=== PATIENT | female | born 1960 | race Caucasian/White ===

== ENCOUNTER → 2016-10-20 | Outpatient (CLI) | payer OTHER ==
--- NOTE | 2016-10-24 13:47 | MAM ---
EXAM DESCRIPTION: Screening Mammogram,Bilateral CLINICAL HISTORY: 56 years, Female, Screening mammogram COMPARISON: August 18, 2015 TECHNIQUE: CC and MLO digital mammograms with computer aided detection. FINDINGS: There are scattered fibroglandular densities. There is no dominant mass nor any suspicious microcalcifications. Benign microcalcifications are present. IMPRESSION: BI-RADS 2: BENIGN FOLLOW-UP: Routine mammography screening. Electronically signed by: Lamont Sykes MD 10/24/2016 1:45 PM CDT
== END ==
LOC: MAMMO 09:00
PROVIDERS: ATTEND Emergency Medicine
DX: Z12.31 Encounter for screening mammogram for malignant neoplasm of breast (principal)

== ENCOUNTER 2017-12-06 14:33 | Emergency (ER) | payer OTHER ==
[2017-12-06 14:59] VITALS: TEMP 98.1
[2017-12-06] MEDS ORDERED: MORPHINE SULFATE INJ 10 MG/ML VIAL IV ONE ×2 (15:12→17:09)
--- NOTE | 2017-12-06 15:13 | ED.PDOC ---
History of Present Illness - General Chief Complaint: Respiratory Problem Stated Complaint: right sided chest discomfort Time Seen by Provider: 12/06/17 14:57 Source: patient, family, other - URGENT CARE RECORDS REVIEWED. Exam Limitations: no limitations - History of Present Illness Initial Comments: RT-SIDED CP, SOB. ACUTE ONSET LAST NIGHT, STILL PERSISTING TODAY THUS PT WENT TO ER. THEY DID CXR, EKG, CBC, CMP, D-DIMER AND GAVE TORADOL SHOT. PT IS ON CHRONIC ESTRADIOL HRT AND D-DIMER SLIGHTLY ELEVATED TODAY SO THEY SENT HER TO ER FOR FURTHER EVALUATION. PT AND REQUEST THAT WE OBTAIN A COPY CXR AND EKG OBTAINED AT [facility]RGENT [facility]ARE [facility] AND THEY REQUESTED THAT WE NOT REPEAT THESE, HENCE I DID NOT ORDER. WE ARE ATTEMPTING TO CONTACT URGENT CARE AND OBTAIN EXPEDITIOUSLY FOR MY REVIEW. PT ALLERGIC TO PO CODEINE. SHE REASSURES ME SHE IS NOT ALLERGIC TO IV MORPHINE. Timing/Duration: constant Severity: severe Improving Factors: nothing Worsening Factors: nothing Associated Symptoms: chest pain, shortness of breath Allergies/Adverse Reactions: Allergies Codeine Allergy (Unknown, Verified 05/27/14 12:57) Home Medications: Ambulatory Orders Carbamazepine [Tegretol-Xr] 200 mg PO DAILY@0700 05/27/14 Carbamazepine [Tegretol-Xr] 400 mg PO BEDTIME 05/27/14 Diltiazem HCl 60 mg PO TID 05/27/14 Escitalopram Oxalate [Lexapro] 20 mg PO BEDTIME 05/27/14 Estradiol 2 mg PO DAILY 05/27/14 Levothyroxine Sodium 25 mcg PO DAILY@0700 05/27/14 Meloxicam [Mobic] 7.5 mg PO BID 05/27/14 Promethazine Tab [Phenergan Tablet] 25 mg PO Q6HRS PRN 05/27/14 Tramadol HCl 50 mg PO Q6HRS PRN 05/27/14 Calcium Carbonate-Cholecalcife [Calcium + D] 1 tab PO DAILY 05/30/14 Cyanocobalamin [Vitamin B-12] 2,500 mcg SL BID 05/30/14 Estradiol 2 mg PO BID 05/30/14 Famotidine [Pepcid AC] 10 mg PO DAILY 05/30/14 Multiple Vitamin [Multi Vitamin Daily] 1 tab PO DAILY 05/30/14 Sulfamethoxazole-Trimethoprim [Bactrim Ds 800-160 mg] 1 tab PO BID 05/30/14 Review of Systems - Review of Systems Constitutional: Denies: chills, diaphoresis, fever EENTM: Denies: blurred vision, ear pain Respiratory: States: short of breath. Denies: cough, wheezing Cardiology: States: chest pain - R-SIDED. Denies: palpitations Gastrointestinal/Abdominal: Denies: abdominal pain, nausea, vomiting Genitourinary: Denies: dysuria, frequency Musculoskeletal: States: other - CHRONIC RLE SCIATICA. Denies: back pain, muscle pain Skin: States: no symptoms reported Neurological: States: pre-existing deficit. Denies: headache, numbness, weakness Endocrine: States: no symptoms reported Hematologic/Lymphatic: States: no symptoms reported All other Systems: Reviewed and Negative Past Medical History (General) - Patient Medical History Hx Seizures: No Hx Stroke: No Hx Dementia: No Hx Asthma: No Hx of COPD: No Hx Cardiac Disorders: No Hx Congestive Heart Failure: No Hx Pacemaker: No Hx Hypertension: No Hx Thyroid Disease: No Hx Diabetes: No Hx Gastroesophageal Reflux: No Hx Renal Disease: No Hx Cancer: Yes - breast, skin Hx of HIV: No Hx Hepatitis C: No Hx MRSA: No - Vaccination History Hx Tetanus, Diphtheria Vaccination: No Hx Influenza Vaccination: No Hx Pneumococcal Vaccination: Yes - Social History Hx Tobacco Use: No Hx Chewing Tobacco Use: No Hx Alcohol Use: No Hx Substance Use: No Hx Substance Use Treatment: No Hx Depression: No Hx Physical Abuse: No Hx Emotional Abuse: No Hx Suspected Abuse: No - Female History Patient : No Family Medical History - Family History Maternal Family History: Unknown Living Status: Unknown Physical Exam - Physical Exam General Appearance: Alert, Obvious distress Eye Exam: bilateral normal Ears, Nose, Throat: hearing grossly normal, normal ENT inspection Neck: non-tender, full range of motion, supple, normal inspection - NO BRUIT. NO JVD. Respiratory: chest non-tender, lungs clear, normal breath sounds, no respiratory distress, no accessory muscle use Cardiovascular/Chest: normal peripheral pulses, regular rate, rhythm, no JVD, no murmur Peripheral Pulses: radial,right: 2+, radial,left: 2+ Gastrointestinal/Abdominal: normal bowel sounds, non tender, soft Back Exam: normal inspection, no CVA tenderness Extremity: normal range of motion, non-tender, normal inspection, no pedal edema , no calf tenderness, other - NEG MICHAEL'S. Neurologic: no motor/sensory deficits, alert, normal mood/affect Skin Exam: normal color, warm/dry Lymphatic: no adenopathy Progress - Progress Progress: 12/06/17 16:50 CP W/U NEG. 1 1/2 D CP AND SOB THUS 1 SET OF CARDIAC ENZ (WNL) ARE SUFFICIENT TO R/O AK. PT HAS MILDLY ELEVATED D-DIMER BUT CTA NEG FOR P.E. LEGS NTTP AND CLINICALLY PT DOES NOT HAVE ANY DVT S/SX. I REVIEWED THE URGENT CARE'S RECORDS: CBC, CMP UNREMARKABLE. CXR NEG. EKG NSR. NO INFECTIOUS URI SX TO WARRANT ABX. PER FAMILY, PT HAS BEEN USING BAND SAW W/O MASK AND EXERTING PHYSICALLY MORE THAN SHE IS USED TO LATELY; AND HER SX ARE WORSE WITH DEEP BREATH, THUS CLINICALLY C/W PLEURISY. PT DECLINES STEROIDS AND HAS ULTRAM AT HOME. NSAIDS, EXPECTANT MGMT. SAFE FOR DC TO HOME WITH FAMILY. Departure - Departure Clinical Impression: Atypical chest pain Dyspnea Qualifiers: Dyspnea type: shortness of breath Qualified Code(s): R06.02 - Shortness of breath; R06.00 - Dyspnea, unspecified; R06.01 - Orthopnea Disposition: Discharge to Home or Self Care Condition: Good Departure Forms: ED Discharge - Pt. Copy, Patient Portal Self Enrollment Instructions: Pleuritic Chest Pain (DC) Diet: resume usual diet Home Medications: Ambulatory Orders Carbamazepine [Tegretol-Xr] 200 mg PO DAILY@0700 05/27/14 Carbamazepine [Tegretol-Xr] 400 mg PO BEDTIME 05/27/14 Diltiazem HCl 60 mg PO TID 05/27/14 Escitalopram Oxalate [Lexapro] 20 mg PO BEDTIME 05/27/14 Estradiol 2 mg PO DAILY 05/27/14 Levothyroxine Sodium 25 mcg PO DAILY@0700 05/27/14 Meloxicam [Mobic] 7.5 mg PO BID 05/27/14 Promethazine Tab [Phenergan Tablet] 25 mg PO Q6HRS PRN 05/27/14 Tramadol HCl 50 mg PO Q6HRS PRN 05/27/14 Calcium Carbonate-Cholecalcife [Calcium + D] 1 tab PO DAILY 05/30/14 Cyanocobalamin [Vitamin B-12] 2,500 mcg SL BID 05/30/14 Estradiol 2 mg PO BID 05/30/14 Famotidine [Pepcid AC] 10 mg PO DAILY 05/30/14 Multiple Vitamin [Multi Vitamin Daily] 1 tab PO DAILY 05/30/14 Sulfamethoxazole-Trimethoprim [Bactrim Ds 800-160 mg] 1 tab PO BID 05/30/14 Additional Instructions: Please follow-up with your regular doctor in 1 week to ensure you are improving. Please get plenty of rest and don't over-exert yourself until the symptoms resolve.
--- NOTE | 2017-12-06 16:37 | CT ---
EXAM DESCRIPTION: CTA Chest CLINICAL HISTORY: 57 years Female, CP, SOB, ELEVATED D-DIMER, EVAL FOR P.E. COMPARISON: None. TECHNIQUE: Transaxial images were obtained with intravenous contrast media. Multiplanar reconstruction was performed. No 3-D reconstruction was performed. This exam was performed according to our departmental dose-optimization program, which includes automated exposure control, adjustment of the mA and/or kV according to patient size and/or use of iterative reconstruction technique. FINDINGS: The thyroid is normal in appearance. No pathologic axillary adenopathy is seen. The thoracic aorta is normal in appearance. A hiatus hernia is observed. There is evidence of surgery at the level of the gastroesophageal junction. No evidence of a pulmonary embolus is seen. No hilar or mediastinal adenopathy is detected. No focal infiltrate is seen. No pulmonary mass or nodule is observed. Mild degenerative changes are seen in the thoracic spine. IMPRESSION: No evidence of pulmonary embolus is seen. Electronically signed by: Sawyer Norris MD 12/06/2017 4:35 PM CDT
[2017-12-06 17:25] VITALS: BP 159/76; O2SAT 99
== END 2017-12-06 17:25 | disposition home or self-care (01) ==
LOC: ER 14:33
DX: R07.89 Other chest pain (principal); R06.02 Shortness of breath; Z79.899 Other long term (current) drug therapy; Z88.5 Allergy status to narcotic agent; Z85.3 Personal history of malignant neoplasm of breast; Z85.828 Personal history of other malignant neoplasm of skin
CPT/HCPCS: 36415; 71275; 82550; 82553; 84484; J2270

== ENCOUNTER → 2017-12-06 | Outpatient (CLI) | payer OTHER | LOC: LAB.O 13:54 | PROVIDERS: ATTEND Nurse Practitioner Family | DX: R06.00 Dyspnea, unspecified (principal) ==

== ENCOUNTER → 2017-12-15 | Outpatient (CLI) | payer OTHER ==
[~2017-12-15] MED LIST: IPRATROPIUM/ALBUTEROL 3 ML VIAL NEB ONE
--- NOTE | 2017-12-15 12:09 | US ---
EXAM DESCRIPTION: Right upper quadrant abdominal sonogram CLINICAL HISTORY: ABD PN COMPARISON: None Available. TECHNIQUE: Right upper quadrant ultrasound FINDINGS: Pancreas: Visualized portions of the pancreas are unremarkable. Bowel gas obscures some areas. Aorta/inferior vena cava: No aortic aneurysm. Normal inferior vena cava. Liver: The liver is homogeneous in texture with normal echogenicity of the hepatic parenchyma. No focal liver lesion or intrahepatic bile duct dilatation. No liver surface irregularity. Normal appearance of the portal vein and hepatic veins. Gallbladder: Dense shadowing is seen consistent with numerous small calculi within the gallbladder. No gallbladder wall thickening or surrounding fluid to suggest acute cholecystitis. Sonographic Rodney sign was recorded as negative. Polyp in the anterior gallbladder wall measures 4 mm. Gallbladder wall thickness is 2.6 mm. Common bile duct: Normal caliber measuring 6.0 mm. Right kidney: Renal length is 10.0 cm. Normal cortical echogenicity. Cortical thickness is normal. No hydronephrosis is seen. No renal mass or shadowing calculus. IMPRESSION: Gallstones without other changes to suggest acute cholecystitis. Electronically signed by: Leo Joel MD 12/15/2017 12:08 PM CDT
== END ==
LOC: US 12:08
PROVIDERS: ATTEND Emergency Medicine
DX: R09.1 Pleurisy (principal); K80.20 Calculus of gallbladder without cholecystitis without obstruction
CPT/HCPCS: 76705; 94060; J7620

== ENCOUNTER 2018-09-19 14:20 | Inpatient (IN) | payer OTHER ==
--- NOTE | 2018-09-19 14:30 | HP ---
SUPERVISING PHYSICIAN: Fidel Yip M.D. CHIEF COMPLAINT: General malaise, cough, fever. HISTORY OF PRESENT ILLNESS: Ms. Connolly is a 58 year-old female patient that presented to the [facility] today after she started having symptoms that included a cough that had been over the last 2 weeks, and she became much more achy with general malaise. She does have a significant history of recently having extensive surgery starting last December on her left Achilles with 4 surgeries, reconstructions and having been on antibiotics for well over 7 weeks, and then requiring multiple surgeries after initial therapy. She was started back on antibiotic therapy with vancomycin and Cefepime under the care of Dr. Zhang with the intention of 3 weeks of total treatment. She started treatment with antibiotics on the . Today in the clinic she was seen by Zenaida Fregoso, nurse practitioner. Vital signs in the clinic showed she was afebrile with unremarkable vital signs, satting 97% on room air. Laboratories were then completed and showed she had a mild leukocytosis with a left shift. Chemistries were fairly unremarkable with a BUN of 20, otherwise creatinine was normal, electrolytes. Liver functions were all within normal limits. Chest x- ray was obtained and per radiology interpretation there was note of right perihilar and right upper lobe infiltrates consistent with pneumonia. She had an Influenza by PCR completed that was reportedly negative. The case was discussed with Dr. Zhang who requested the patient to be admitted to the Medical/Surgical floor at [facility] for initiation of treatment of underlying right sided pneumonia with concerns for hospital acquired pneumonia with the patient being on multiple antibiotics within the last 6 months. The patient is going to be now admitted for initiation of antibiotics for treatment of the underlying right sided pneumonia. She was admitted in stable condition. PAST MEDICAL HISTORY: 1. Hypertension. 2. Diabetes mellitus both diet controlled. 3. Esophageal spasms on verapamil. 4. Depression. 5. Gastroesophageal reflux disease. 6. Hypothyroidism. PAST SURGICAL HISTORY: 1. Gastric sleeve. 2. Partial hysterectomy. 3. Right hip replacement. 4. Partial cholecystectomy due to complications from diverticulitis. 5. Bilateral lumpectomies. 6. Carpal tunnel syndrome, bilateral. 7. Hernia repair. HOME MEDICATIONS: 1. Verapamil 120 mg daily. 2. Tramadol 50 mg every 6 hours as needed for pain. 3. Paroxetine 25 mg b.i.d. 4. Multiple vitamins 1 tablet daily. 5. Levothyroxine 25 mcg daily. 6. Johnson 5s every 6 hours as needed for pain. 7. Pepcid AC 10 mg daily. 8. Estradiol 1 mg b.i.d. 9. Esomeprazole. 10. Magnesium 40 mg daily. 11. Lexapro 20 mg at bedtime. 12. Align. 13. Antibiotics for underlying treatment of right Achilles with Vancenase and Cefepime. ALLERGIES: CODEINE. FAMILY HISTORY: Mother in her 70s due to lung cancer. Father in his 80s due to Parkinson's complications. She has 4 siblings, one at a young age from a motor vehicle accident. She has 1 sister who has breast cancer and is diabetic. She has a brother and another sister who are both diabetic. SOCIAL HISTORY: The patient lives in [place], [place]. She is . Has 4 kids. 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 She has never drank nor smoked and does no use illicit drugs. REVIEW OF SYSTEMS: CONSTITUTIONAL: Positive for general fatigue, general malaise and rigors with a reported fever of 100.4 at home. HEENT: Positive for frontal headache. Negative for any nasal congestion, ear aches, sore throat. CHEST: Positive for cough, some mild shortness of breath, but no wheezing or exertional dyspnea. CARDIOVASCULAR: Negative for any chest pains, palpitations or syncopal episodes. GASTROINTESTINAL: Negative for any nausea, vomiting or diarrhea. She does have chronic constipation. Not sure when she had her last bowel movement. Denies any abdominal pains. GENITOURINARY: Denies any dysuria, hematuria or polyuria. EXTREMITIES: As noted in history of present illness, left lower Achilles repair with a current cast in place and on current antibiotic therapy. NEUROLOGIC: Denies any ataxia, seizures or other motor or sensory deficits. PHYSICAL EXAMINATION: VITAL SIGNS: Temperature 97.4, pulse 49, blood pressure 146/76, respirations 18, satting 97% on room air. In the clinic on admission, the patient was showing a temperature of 99 with blood pressure 111/54, respirations 18, satting 93% on room air. Admission weight was 93 kg. GENERAL: The patient is resting comfortably. Appears to be in no acute distress. She does appear somewhat unwell, but is well hydrated and well nourished. She is alert. HEENT: Tympanic membranes are clear bilaterally. Oropharynx is pink and moist without any lesions. NECK: Supple, non-tender. Full range of motion. No jugular venous distention. CHEST: Lung sounds were fairly clear on the left compared to the right with diminished on both bases. On the right was notably for rhonchi and on the more posterolateral aspect of the mid and lower lobes. No wheezing was appreciated. CARDIOVASCULAR: Regular rate and rhythm without appreciable murmurs, gallops, or rubs. ABDOMEN: Soft, non-tender. Positive bowel sounds. EXTREMITIES: Without any clubbing, cyanosis or edema with the left lower leg having a cast in place. Distally capillary refill is brisk. Sensation was intact. She does have a PICC line in place on the right biceps. NEUROLOGIC: She is alert and oriented times three. Cranial nerves II-XII are grossly intact. Facial features were symmetrical. Extraocular movements are within normal limits. There is no notable nystagmus. SKIN: Warm, pink and dry. LYMPHATICS: No palpable lymphadenopathy. LABORATORY: Done in the clinic prior to admission showed white count 11,400, hemoglobin 13.9, hematocrit 41.6, platelet count 174,000. Differential showed a left shift. Sed rate was normal at 16. Chemistries were fairly unremarkable. BUN is slightly elevated at 20, creatinine 0.79, glucose 104. Liver functions were all within normal limits. RADIOLOGY: She had a chest x-ray on 09/19 today on admission, two view chest, per radiology interpretation showed right perihilar and right upper lobe infiltrate consistent with pneumonia. This was compared to chest x-ray done on 09/12 which was without any obvious consolidations or signs of early pneumonia. ASSESSMENT: 1. Healthcare acquired pneumonia with the patient being on antibiotics on a regular basis since December of 2017 for underlying complications of right Achilles surgery. 2. History of esophageal spasms on Verapamil. 3. History of depression. 4. Chronic hypothyroidism on supplementation. 5. Gastroesophageal reflux disease. PLAN: The patient is going to be admitted for initiation of antibiotics to include continued vancomycin per Pharmacy protocol with the addition of Meropenem and azithromycin. I did discuss the case with Dr. Zhang. She wishes to leave the patient on at least 3 days of antibiotics and see how she responds to treatment. I will plan to repeat labs as necessary and chest x-rays as needed. She will be on DVT prophylaxis per protocol. Will anticipate her length of stay to be at least 1 to 2 days. She will also be on aggressive pulmonary hygiene with q.i.d. DuoNeb treatments and chest percussive therapy. Until we can transition her to outpatient management, will continue to treat as needed. #[id number] MTDD
[2018-09-19] MEDS ORDERED: ALBUTEROL SULFATE 2.5 MG/3 ML VIAL NEB PRN (14:41)
[2018-09-19] MEDS ORDERED: SODIUM CHLORIDE 0.9% (FLUSH) 10 ML SYG IV PRN (14:41)
[2018-09-19] MEDS ORDERED: ACETAMINOPHEN 325 MG TAB PO PRN (14:51)
[2018-09-19] MEDS ORDERED: ONDANSETRON INJ 4 MG/2 ML VIAL IV PRN (14:51)
[2018-09-19] MEDS ORDERED: AMPICILLIN & SULBACTAM SODIUM 3 GM in SODIUM CHL 0.9% 100ML MINI-BAG 100 ML IVPB SCH (15:00)
[2018-09-19] MEDS ORDERED: BIFIDOBACTERIUM INFANTIS 4 MG CAP PO SCH (15:00)
[2018-09-19] MEDS ORDERED: VANCOMYCIN PER PHARMACY INJ SCH (16:00)
[2018-09-19] MEDS ORDERED: SODIUM CHLORIDE 0.9% 250ML 250 ML ONE ×2 (16:17→19:56)
[2018-09-19] MEDS ORDERED: AZITHROMYCIN IV 500 MG VIAL IVPB ONE (16:18)
[2018-09-19] MEDS: IV SET AND CAP CHANGE INJ INJ SCH (16:23)
[2018-09-19] MEDS: AZITHROMYCIN IV 500 MG in SODIUM CHLORIDE 0.9% 250ML 250 ML IVPB SCH (16:23)
[2018-09-19] MEDS ORDERED: HYDROcodone 5MG/APAP 325MG 1 EA TAB PO PRN (16:24)
[2018-09-19] MEDS ORDERED: traMADol HCL 50 MG TAB PO PRN (16:24)
[2018-09-19] MEDS: IPRATROPIUM/ALBUTEROL 3 ML VIAL INH SCH ×2 (16:40→20:25)
[2018-09-19] MEDS: BIFIDOBACTERIUM INFANTIS 4 MG CAP PO SCH (16:58)
[2018-09-19] MEDS ORDERED: DOCUSATE SODIUM 100 MG CAP ONE (18:18)
[2018-09-19] MEDS ORDERED: SODIUM CHL 0.9% 50ML MIN-BAG+ 50 ML IVPB ONE ×2 (18:19→19:56)
[2018-09-19] MEDS ORDERED: MEROPENEM 1 GM VIAL IVPB ONE ×2 (18:19→19:57)
[2018-09-19] MEDS: POLYETHYLENE GLYCOL 3350 17 GM PCKT PO SCH (18:27)
[2018-09-19] MEDS: MEROPENEM 1 GM in SODIUM CHL 0.9% 50ML MIN-BAG+ 50 ML IVPB SCH (18:27)
[2018-09-19] MEDS: BISACODYL TAB 5 MG TAB PO SCH (18:27)
[2018-09-19] MEDS ORDERED: OMEPRAZOLE CAP 20 MG CAP ONE (19:56)
[2018-09-19] MEDS ORDERED: ESTRADIOL TAB 1 MG PO ONE (19:56)
[2018-09-19] MEDS ORDERED: LEVOTHYROXINE SODIUM 0.025 MG TAB ONE (19:57)
[2018-09-19] MEDS ORDERED: VANCOMYCIN HCL INJ 1,000 MG VIAL IVPB ONE (19:57)
[2018-09-19] MEDS: VANCOMYCIN HCL INJ 1,000 MG in SODIUM CHLORIDE 0.9% 250ML 250 ML IVPB SCH (20:12)
[2018-09-19] MEDS: ALUM & MAG HYDROX-SIMETHICONE 30 ML UD PO PRN (20:13)
[2018-09-19] MEDS: ESCITALOPRAM 10 MG TAB PO SCH (20:14)
[2018-09-19] MEDS: ENOXAPARIN SODIUM 40 MG/0.4 ML SYG SUBCU SCH (20:14)
[2018-09-19] MEDS: ESTRADIOL 1 MG PO SCH (20:14)
[2018-09-19] MEDS: MAGNESIUM HYDROXIDE 30 ML UD PO SCH (20:20)
[2018-09-19] MEDS ORDERED: PAROXETINE HCL 25 MG PO SCH (21:00)
[2018-09-19] MEDS: HYDROcodone 5MG/APAP 325MG 1 EA TAB PO PRN (22:33)
[2018-09-20] MEDS: LEVOTHYROXINE SODIUM 0.025 MG TAB PO SCH (06:09)
[2018-09-20] MEDS ORDERED: OMEPRAZOLE CAP 20 MG CAP PO SCH ×2 (06:30)
[2018-09-20] MEDS ORDERED: SODIUM CHL 0.9% 50ML MIN-BAG+ 50 ML IVPB ONE ×2 (07:29→18:48)
[2018-09-20] MEDS ORDERED: MEROPENEM 1 GM VIAL IVPB ONE ×2 (07:29→18:48)
[2018-09-20] MEDS: IPRATROPIUM/ALBUTEROL 3 ML VIAL INH SCH ×4 (07:34→19:38)
--- NOTE | 2018-09-20 07:35 | RAD ---
EXAM DESCRIPTION: Chest,2 Views CLINICAL HISTORY: Pneumonia COMPARISON: September 19, 2018 TECHNIQUE: PA/lateral FINDINGS: Left lung remains essentially clear with a tiny amount of patchy atelectasis or stranding at the lung bases. Persistent parahilar and infrahilar infiltrative changes are present in the central right lung with slight interval improvement in the upper lung field evident since previous day's study. Significant pleural effusion is not apparent. A right-sided PICC catheter extends into the superior vena cava. The aorta is tortuous and heart size remains normal with normal vascularity. IMPRESSION: Persistent right-sided perihilar and infrahilar infiltrate with minimal improvement superiorly. Electronically signed by: Sly Fu MD 09/20/2018 7:32 AM CDT
[2018-09-20] MEDS: MEROPENEM 1 GM in SODIUM CHL 0.9% 50ML MIN-BAG+ 50 ML IVPB SCH ×6 (07:37→18:57)
[2018-09-20] MEDS ORDERED: SODIUM CHLORIDE 0.9% 250ML 250 ML ONE ×3 (07:49→18:54)
[2018-09-20] MEDS ORDERED: FAMOTIDINE 20 MG TAB ONE (07:50)
[2018-09-20] MEDS ORDERED: ESTRADIOL TAB 1 MG PO ONE (07:50)
[2018-09-20] MEDS ORDERED: VANCOMYCIN HCL INJ 1,000 MG VIAL IVPB ONE ×2 (07:51→18:55)
[2018-09-20] MEDS: VERAPAMIL ER 120 MG TAB PO SCH (08:12)
[2018-09-20] MEDS: BISACODYL TAB 5 MG TAB PO SCH (08:12)
[2018-09-20] MEDS: ESTRADIOL 1 MG PO SCH (08:13)
[2018-09-20] MEDS: MELOXICAM 7.5 MG TAB PO SCH (08:13)
[2018-09-20] MEDS: MULTIPLE VITAMIN 1 EA TAB PO SCH (08:13)
[2018-09-20] MEDS: BIFIDOBACTERIUM INFANTIS 4 MG CAP PO SCH (08:14)
[2018-09-20] MEDS: POLYETHYLENE GLYCOL 3350 17 GM PCKT PO SCH (08:15)
[2018-09-20] MEDS: VANCOMYCIN HCL INJ 1,000 MG in SODIUM CHLORIDE 0.9% 250ML 250 ML IVPB SCH ×2 (08:15→19:37)
[2018-09-20] MEDS ORDERED: FAMOTIDINE 10 MG PO SCH (09:00)
[2018-09-20] MEDS: ESTRADIOL TAB 1 MG PO SCH ×2 (09:10→20:55)
[2018-09-20] MEDS: FAMOTIDINE 20 MG TAB PO SCH (09:11)
[2018-09-20] MEDS: HYDROcodone 5MG/APAP 325MG 1 EA TAB PO PRN (09:44)
[2018-09-20] MEDS ORDERED: KETOROLAC TROMETHAMINE INJ 30 MG/ML VIAL IV ONE ×2 (13:06→21:20)
[2018-09-20] MEDS ORDERED: ALUM & MAG HYDROX-SIMETHICONE 30 ML, LIDOCAINE VISCOUS 2% 15 ML PO ONE ×6 (13:06→21:28)
[2018-09-20] MEDS ORDERED: LIDOCAINE HCL 2% (MOUTH-THROAT) 15 ML UD ONE ×2 (14:04→20:50)
[2018-09-20] MEDS: PANTOPRAZOLE SODIUM IV 40 MG VIAL IV SCH (14:07)
[2018-09-20] MEDS ORDERED: AZITHROMYCIN IV 500 MG VIAL IVPB ONE (14:41)
[2018-09-20] MEDS: AZITHROMYCIN IV 500 MG in SODIUM CHLORIDE 0.9% 250ML 250 ML IVPB SCH (15:10)
[2018-09-20] MEDS: ESCITALOPRAM 10 MG TAB PO SCH (20:55)
[2018-09-20] MEDS: ENOXAPARIN SODIUM 40 MG/0.4 ML SYG SUBCU SCH (20:57)
[2018-09-20] MEDS: MAGNESIUM HYDROXIDE 30 ML UD PO SCH (20:58)
[2018-09-20] MEDS ORDERED: TEMAZEPAM 15 MG CAP PO PRN (22:16)
[2018-09-21] MEDS: ALUM & MAG HYDROX-SIMETHICONE 30 ML UD PO PRN (00:13)
[2018-09-21] MEDS: HYDROcodone 5MG/APAP 325MG 1 EA TAB PO PRN ×2 (00:13→15:02)
[2018-09-21] MEDS ORDERED: MEROPENEM 1 GM VIAL IVPB ONE ×4 (03:22→19:23)
[2018-09-21] MEDS ORDERED: SODIUM CHL 0.9% 50ML MIN-BAG+ 50 ML IVPB ONE ×3 (03:22→19:16)
[2018-09-21] MEDS: MEROPENEM 1 GM in SODIUM CHL 0.9% 50ML MIN-BAG+ 50 ML IVPB SCH ×3 (03:32→19:20)
[2018-09-21] MEDS: LEVOTHYROXINE SODIUM 0.025 MG TAB PO SCH (06:05)
[2018-09-21] MEDS ORDERED: VANCOMYCIN HCL INJ 1,000 MG VIAL IVPB ONE ×2 (07:45→19:23)
[2018-09-21] MEDS ORDERED: SODIUM CHLORIDE 0.9% 250ML 250 ML ONE ×3 (07:45→19:22)
[2018-09-21] MEDS: IPRATROPIUM/ALBUTEROL 3 ML VIAL INH SCH ×4 (07:52→19:46)
[2018-09-21] MEDS: MELOXICAM 7.5 MG TAB PO SCH (08:29)
[2018-09-21] MEDS: ESTRADIOL TAB 1 MG PO SCH ×2 (08:30→20:11)
[2018-09-21] MEDS: BISACODYL TAB 5 MG TAB PO SCH (08:30)
[2018-09-21] MEDS: FAMOTIDINE 20 MG TAB PO SCH (08:31)
[2018-09-21] MEDS: BIFIDOBACTERIUM INFANTIS 4 MG CAP PO SCH (08:31)
[2018-09-21] MEDS: VANCOMYCIN HCL INJ 1,000 MG in SODIUM CHLORIDE 0.9% 250ML 250 ML IVPB SCH ×2 (08:31→21:30)
[2018-09-21] MEDS: VERAPAMIL ER 120 MG TAB PO SCH (08:31)
[2018-09-21] MEDS: POLYETHYLENE GLYCOL 3350 17 GM PCKT PO SCH (08:37)
[2018-09-21] MEDS: MULTIPLE VITAMIN 1 EA TAB PO SCH (08:40)
--- NOTE | 2018-09-21 08:46 | PN ---
DATE: 09/20/18 SUPERVISING PHYSICIAN: Fidel Yip MD SUBJECTIVE: The patient has been afebrile since admission. She has had several instances of indigestion and got some relief with GI cocktail. She has had no nausea or reported chest pains. OBJECTIVE: VITAL SIGNS: Temperature 97/8, pulse 70, blood pressure 116/71, respirations 18, saturation 99% on room air. Weight 92.0 kg. GENERAL: The patient is resting comfortably, she is alert. CHEST: Lung sounds are heard throughout, slightly diminished toward the bases on the right with some rhonchi heard on the posterior lateral right lung hoyos. HEART: Regular rate and rhythm. ABDOMEN: Soft, non-tender, positive bowel sounds. EXTREMITIES: No edema. Cast is on the left lower leg. Distally capillary refill is brisk. NEUROLOGICAL: Alert and oriented x3. LABORATORY: White count 8,700, hemoglobin 12, hematocrit 35.5, differential shows to be without a left shift. Chemistries show normal electrolytes with BUN 18, creatinine 0.6. RADIOLOGY: Repeat 2-view chest x-ray this morning shows persistent left-sided perihilar and infrahilar infiltrate, minimally improved superiorly. ASSESSMENT: 1. Healthcare acquired pneumonia with the patient being on antibiotics on a regular basis since December of 2017 for underlying complications of right Achilles surgery. She is showing some improvement on antibiotics to include Meropenem and azithromycin. Will continue vancomycin coverage for Achilles injury. 2. History of esophageal spasms on Verapamil with continued epigastric discomfort with questionable biliary colic, needing further workup. 3. History of depression. 4. Chronic hypothyroidism on supplementation. 5. Gastroesophageal reflux disease, poorly controlled. PLAN: Will continue antibiotic coverage with meropenem, azithromycin and Rocephin. She continues to have a significant amount of epigastric discomfort after each meal. Will go ahead and take her to clear-liquids to see if we can prevent any further episodes. Will do a cardiac workup if needed. She does endorse that at some point in the past she has been worked up for gallbladder problems and has been told she does need to have her gallbladder removed but due to the problems with her leg this has been delayed. If the symptoms continue, certainly will work her up. Will start with ultrasound. Will go ahead and try to treat her with NSAIDS to see if that will help relieve the issues as well as GI cocktails as needed. She does remain on DVT prophylaxis and aggressive pulmonary hygiene. Until we can transition back to outpatient management, we will continue to monitor and treat as needed. #[id number] [facility]
--- NOTE | 2018-09-21 11:47 | US ---
EXAM DESCRIPTION: Gall Bladder: ULTRASOUND. CLINICAL HISTORY: RUQ pain. Hx of gallstones COMPARISON: Gallbladder ultrasound 12/15/2017. TECHNIQUE: Transabdominal scanning: Mott-scale and Doppler modes. FINDINGS: Gallbladder: normal size, shape, echogenicity; multiple gallstones. Echogenic with acoustic shadowing. Mobile with patient change in position. Less than 5 mm diameter.. No fluid around the gallbladder. No wall thickening. Report 1 mm. Non-tender with transducer pressure. Common bile duct: caliber 3.7 mm within normal limits. Liver: Increased echogenicity; contour liver capsule smooth where seen. No fluid around the liver. Intrahepatic biliary ducts normal caliber. Doppler hepatopedal flow portal vein, 1 cm caliber.. Long axis right lobe 13.2 cm. Pancreas: normal size and echogenicity. Duct not seen. Aorta: Shadowed by gallbladder stones. Right kidney: Long axis is 11.0 cm. Normal cortical thickness and echogenicity. No hydronephrosis, echogenic stones, no perirenal fluid. IMPRESSION: 1. Cholelithiasis of the gallbladder. Multiple stones, similar appearance on the prior study December 2017. Polyp was not seen but could be obscured by stones. No wall thickening or fluid. Nontender with transducer pressure. Common bile duct normal caliber. 2. Mild steatosis of the liver, otherwise unremarkable with no ascites. Pancreas and right kidney are negative. Aorta is obscured by echogenic shadowing from gallstones. Electronically signed by: Mauro Reynolds MD 09/21/2018 11:45 AM CDT
[2018-09-21] MEDS: PANTOPRAZOLE SODIUM IV 40 MG VIAL IV SCH (13:44)
[2018-09-21] MEDS ORDERED: AZITHROMYCIN IV 500 MG VIAL IVPB ONE (14:54)
--- NOTE | 2018-09-21 14:55 | PN ---
SUPERVISING PHYSICIAN: Unruly Yip MD DATE: 09/21/18 SUBJECTIVE: The patient last night after supper had some significant chest pain and epigastric discomfort. She does have a history of previous esophageal strictures and spasms for which she is on verapamil. She did get some relief with a GI cocktail. Cardiac enzymes and EKGs were all without any acute findings. This morning she was NPO, but notes her discomfort is still present, around a 2. A scan of her gallbladder was positive for stones, but no acute cholecystitis. She has not had any associated nausea or vomiting with it either. OBJECTIVE: VITAL SIGNS: Temperature 98.9. Pulse 71. Blood pressure 129/74. Respirations 18. Oxygen saturation 95% on room air. Weight 92.0 kg. GENERAL: The patient appears to be in no acute distress. She is alert. CHEST: Lungs are fairly clear, just very faint rhonchi heard on the posterolateral aspect in the right lower lobe, but improved from previous days. HEART: Regular rate and rhythm. ABDOMEN: Soft with no epigastric tenderness, no right upper quadrant tenderness. No peritoneal signs, no rebound. No point tenderness. Bowel sounds are active. NEUROLOGICAL: Alert and oriented x3. LABORATORY: Last night, white count was 6,900, hemoglobin 11.4, hematocrit 34.3, platelet count 163,000. Differential was without a left shift. Chemistries showed normal electrolytes this morning with BUN 16, creatinine 0.75. She has two sets of troponin last night and this morning, both were less than 0.02. RADIOLOGY: Gallbladder ultrasound this morning per radiologic interpretation shows cholelithiasis of the gallbladder with multiple stones with similar appearance to prior study in December of 2017. Polyp was not seen, but could be obscured by stones. There was no wall thickening or fluid. Nontender with transducer pressure. Common bile duct normal caliber. There was note of mild steatosis of the liver. Otherwise, unremarkable with no ascites. Pancreas and right kidney were all negative. EKGs showed a sinus rhythm without any ST or T- wave changes to indicate any ischemia or acute injury pattern. ASSESSMENT: 1. Healthcare acquired pneumonia, right sided, with the patient having been on antibiotics within the last several months, current being treated with vancomycin and cefepime for an Achilles infection with the patient showing some improvement on antibiotics with meropenem and azithromycin. 2. History of esophageal spasms with continued spasms with the patient on verapamil with some pain relief GI cocktail and Tums. 3. Chest pains, likely secondary to #2 with questionable esophagitis versus gastritis with the patient having exacerbation of gastroesophageal reflux disease that has been poorly controlled. 4. Cholelithiasis without any evidence of cholecystitis. 5. History of depression. 6. Chronic hypothyroidism on supplementation. 7. Gastroesophageal reflux disease, poorly controlled, likely contributing to chest pain. PLAN: Will continue antibiotic coverage for pneumonia with meropenem, azithromycin and vancomycin. She has had several episodes of epigastric discomfort that essentially resolved with GI cocktails. We will try some Carafate for better control of her discomfort as well as put her on a full liquid diet for 24 hours. I did discuss with Dr. Reynolds possibly doing a barium swallow, however, he suggested this could be done as an outpatient. I will also talk to Dr. Julio in regards to the patient's epigastric discomfort given that she has had a past gastric sleeve procedure and probably would benefit from an EGD at some point. We will anticipate hopefully being able to discharge tomorrow as it will be a total of 3 days of antibiotic coverage. We will repeat an x-ray in the morning. Labs at this point are stable. Until the patient can transition to outpatient management, we will continue to monitor and treat as needed. #[id number] [facility]
[2018-09-21] MEDS: AZITHROMYCIN IV 500 MG in SODIUM CHLORIDE 0.9% 250ML 250 ML IVPB SCH (15:03)
--- NOTE | 2018-09-21 17:34 | CONS ---
DATE OF CONSULTATION: 09/21/18 REASON FOR CONSULTATION: Epigastric pain, history of gallstones. HISTORY OF PRESENT ILLNESS: This is a 58 year-old woman who was admitted for pneumonia, 2 day ago she states she started feeling weak, was seen and diagnosed with a right-sided pneumonia. She says she is feeling better, her strength is back, she is not complaining of a productive cough at this time but last night she developed epigastric substernal chest pain radiating to the back and the right arm and right side. She said she had a similar episode last December and another smaller episode in between that time. She did not relate any precipitating factors, no particular food, no particular alleviating factors except she did get better this time with a GI cocktail of which she has had two. No real nausea or vomiting with it, it does feel like a burning pain similar to reflux that she is known to have and she had an EGD with an esophageal dilation about 7 years ago with no followup since. Also, no changes in her stools, no history of black or bloody stool. PAST MEDICAL HISTORY: 1. Esophageal spasms. 2. Hypothyroidism. 3. Hypertension. She denies diabetes. PAST SURGICAL HISTORY: 1. Gastric sleeve 5 years ago. 2. Partial hysterectomy. 3. Partial colectomy by Dr. Carrasquillo, hernia repair after that. 4. Carpal tunnel. 5. Hip surgery. CURRENT MEDICATIONS: Her home list is reviewed. She takes medication for the above plus Nexium, Lexapro and is on chronic antibiotic with a PICC line due to Achilles tendon repair followed by reinjury, open wound after second repair and seems to be doing well per patient at this time. She is to see her orthopedist soon to have the cast removed after her hardware removal. FAMILY HISTORY: Multiple family members have had their gallbladder out. SOCIAL HISTORY: She denies any history of current illicit habits. REVIEW OF SYSTEMS: GENERAL: Currently, she denies any fevers or chills. No headache or visual changes, sore throat, cough or wheezing. No chest pain or palpitations, but for the burning she had in the chest which occurred a little bit earlier this afternoon. Denies any productive cough or wheezes at this time. GI: No November, no diarrhea, no constipation. : No frequency, dysuria or hematuria. EXTREMITIES: Lower extremity cast on the left side. She does not complain of any swelling or pain. NEUROLOGICAL: No complaints on exam. She is conscious, alert and well oriented in no distress. PHYSICAL EXAMINATION: VITAL SIGNS: Temperature 98.9, pulse 70, blood pressure 129/74, respiratory rate 18, 02 saturation 95%. HEENT: Sclera icteric. NECK: Supple, no jugular venous distention or thyromegaly. CHEST: Clear and equal bilaterally . No wheezing or crackles. HEART: Regular rate and rhythm. ABDOMEN: Obese, soft, non-tender, no noted hepatosplenomegaly, no rebound or guarding, no Rodney's sign. No evidence of hernias. EXTREMITIES: No edema. NEUROLOGIC: No evidence of defects. No evidence of deficiencies. LABORATORY: White blood cell count is 8, hematocrit 35, platelets 164,000. INR is 1, BNP normal. Lipase 34. LFTs normal. STUDIES: Gallbladder ultrasound showed gallstones and no evidence of chronic or acute inflammation. Chest x-ray shows right-sided pneumonia. IMPRESSION: 58 year-old woman admitted with a community acquired pneumonia, chronic antibiotics for her left leg. She also has substernal epigastric chest pain, this is likely due to reflux and possibly recurrent stricture. I am also suspicious her gallbladder may be intermittently symptomatic. I do not do esophageal intervention so I have recommended she see a body shop mechanic knowing her history of esophageal stricture, dysmotility and a gastric sleeve and also followup with Dr. Carrasquillo for suspected symptomatic cholelithiasis since she has a relationship with him as he had performed a partial colectomy on her in the past. Thank you very much for asking me to evaluate Ms. Connolly. #[id number] [facility]
[2018-09-21] MEDS ORDERED: SODIUM CHLORIDE 0.9% 50ML 50 ML ONE (19:23)
[2018-09-21] MEDS: ESCITALOPRAM 10 MG TAB PO SCH (20:11)
[2018-09-21] MEDS: MAGNESIUM HYDROXIDE 30 ML UD PO SCH (20:12)
[2018-09-21] MEDS: ENOXAPARIN SODIUM 40 MG/0.4 ML SYG SUBCU SCH (20:12)
[2018-09-22] MEDS: MEROPENEM 1 GM in SODIUM CHL 0.9% 50ML MIN-BAG+ 50 ML IVPB SCH ×3 (02:38→19:26)
[2018-09-22] MEDS: LEVOTHYROXINE SODIUM 0.025 MG TAB PO SCH (06:30)
--- NOTE | 2018-09-22 06:45 | RAD ---
Procedure: XR CHEST 2 VIEWS Exam Date: 09/22/2018 Ordering Provider: Isaac Blood Clinical Indication: pneumonia Comparison: 09/20/2018 Findings: Right PICC stable in position. Cardiomediastinal silhouette is within normal limits. Stable left basilar subsegmental atelectasis and/or infiltrate. Right supra and infrahilar infiltrates are not significantly changed from prior. No pleural effusion. No pneumothorax. No acute osseous abnormality. Impression: 1. Stable appearance of the chest. Electronically signed by: Mumtaz Brady MD 09/22/2018 6:43 AM CDT
[2018-09-22] MEDS: IPRATROPIUM/ALBUTEROL 3 ML VIAL INH SCH ×4 (07:53→20:31)
[2018-09-22] MEDS ORDERED: SODIUM CHLORIDE 0.9% 250ML 250 ML ONE ×3 (08:49→19:28)
[2018-09-22] MEDS ORDERED: VANCOMYCIN HCL INJ 1,000 MG VIAL IVPB ONE ×2 (08:50→19:29)
[2018-09-22] MEDS: VANCOMYCIN HCL INJ 1,000 MG in SODIUM CHLORIDE 0.9% 250ML 250 ML IVPB SCH ×2 (08:57→20:20)
[2018-09-22] MEDS: VERAPAMIL ER 120 MG TAB PO SCH (09:02)
[2018-09-22] MEDS: FAMOTIDINE 20 MG TAB PO SCH (09:02)
[2018-09-22] MEDS: MULTIPLE VITAMIN 1 EA TAB PO SCH (09:02)
[2018-09-22] MEDS: BIFIDOBACTERIUM INFANTIS 4 MG CAP PO SCH ×2 (09:02→21:10)
[2018-09-22] MEDS: MELOXICAM 7.5 MG TAB PO SCH (09:02)
[2018-09-22] MEDS: BISACODYL TAB 5 MG TAB PO SCH (09:03)
[2018-09-22] MEDS: ESTRADIOL TAB 1 MG PO SCH ×2 (09:03→21:10)
[2018-09-22] MEDS: POLYETHYLENE GLYCOL 3350 17 GM PCKT PO SCH (09:03)
[2018-09-22] MEDS ORDERED: MEROPENEM 1 GM VIAL IVPB ONE ×3 (10:35→19:29)
[2018-09-22] MEDS ORDERED: SODIUM CHL 0.9% 50ML MIN-BAG+ 50 ML IVPB ONE ×3 (10:35→19:28)
[2018-09-22] MEDS: HYDROcodone 5MG/APAP 325MG 1 EA TAB PO PRN (11:30)
--- NOTE | 2018-09-22 11:36 | PN ---
SUPERVISING PHYSICIAN: Unruly Yip MD DATE: 09/22/18 SUBJECTIVE: The patient is lying in bed. She has complaints of weakness and just feeling poorly. She said she actually thought she had a high temperature last night just because she had diaphoresis. She has no complaints of chest pain, nausea or vomiting. OBJECTIVE: VITAL SIGNS: T-max 24 hours is 100.5. Heart rate 80. Blood pressure 119/69. Respiratory rate 18. O2 saturation 94% on room air. RESPIRATORY: Diminished at the bases. CARDIAC: Regular rate and rhythm. GASTROINTESTINAL: Abdomen is soft, nondistended, nontender. NEUROLOGIC: Awake, alert and oriented times three. LABORATORY: Blood cultures were drawn last night and preliminary is negative to date. RADIOLOGY: Chest x-ray shows stable appearance of the chest with stable left basilar subsegmental atelectasis and/or infiltrate. Right supra and infrahilar infiltrates are not significantly changed from prior. All other labs and films have been reviewed via the EMR. ASSESSMENT: 1. Healthcare acquired pneumonia, right sided, with the patient having been on antibiotics within the last several months, current being treated with vancomycin and cefepime for an Achilles infection with the patient showing some improvement on antibiotics with meropenem and azithromycin. 2. History of esophageal spasms with continued spasms with the patient on verapamil with some pain relief GI cocktail and Tums. 3. Chest pains, likely secondary to #2 with questionable esophagitis versus gastritis with the patient having exacerbation of gastroesophageal reflux disease that has been poorly controlled. 4. Cholelithiasis without any evidence of cholecystitis. 5. History of depression. 6. Chronic hypothyroidism on supplementation. 7. Gastroesophageal reflux disease, poorly controlled, likely contributing to chest pain. PLAN: We will continue present supportive care. I spoke with Dr. Zhang, infectious diseases, this morning and she recommended she continue in the hospital until she is afebrile for 24 hours. Continue with her Merrem, azithromycin and vancomycin. Upon discharge, Dr. Zhang also recommended she continue on her previous outpatient medications. For followup, she will need to see Dr. Carrasquillo, a GI specialist as well as Dr. Zhang and would also benefit from a barium swallow. I will need to send this to Dr. Box and Zenaida Fregoso. Hopefully she can be discharged tomorrow. We will continue to monitor the patient closely and follow as needed. #[id number] [facility]
[2018-09-22] MEDS: PANTOPRAZOLE SODIUM IV 40 MG VIAL IV SCH (14:00)
[2018-09-22] MEDS ORDERED: AZITHROMYCIN IV 500 MG VIAL IVPB ONE (16:55)
[2018-09-22] MEDS: AZITHROMYCIN IV 500 MG in SODIUM CHLORIDE 0.9% 250ML 250 ML IVPB SCH (17:12)
[2018-09-22] MEDS: IV SET AND CAP CHANGE INJ INJ SCH (17:15)
[2018-09-22] MEDS: ESCITALOPRAM 10 MG TAB PO SCH (21:10)
[2018-09-22] MEDS: ENOXAPARIN SODIUM 40 MG/0.4 ML SYG SUBCU SCH (21:10)
[2018-09-22] MEDS: MAGNESIUM HYDROXIDE 30 ML UD PO SCH ×2 (21:11→22:17)
[2018-09-23] MEDS: MEROPENEM 1 GM in SODIUM CHL 0.9% 50ML MIN-BAG+ 50 ML IVPB SCH ×2 (03:19→11:23)
[2018-09-23] MEDS ORDERED: VANCOMYCIN HCL INJ 1,000 MG VIAL IVPB ONE (07:43)
[2018-09-23] MEDS ORDERED: SODIUM CHLORIDE 0.9% 250ML 250 ML ONE (07:43)
[2018-09-23] MEDS: VANCOMYCIN HCL INJ 1,000 MG in SODIUM CHLORIDE 0.9% 250ML 250 ML IVPB SCH (07:57)
[2018-09-23] MEDS: LEVOTHYROXINE SODIUM 0.025 MG TAB PO SCH (07:57)
[2018-09-23] MEDS: IPRATROPIUM/ALBUTEROL 3 ML VIAL INH SCH (08:17)
[2018-09-23] MEDS: MELOXICAM 7.5 MG TAB PO SCH (09:01)
[2018-09-23] MEDS: BIFIDOBACTERIUM INFANTIS 4 MG CAP PO SCH (09:01)
[2018-09-23] MEDS: VERAPAMIL ER 120 MG TAB PO SCH (09:01)
[2018-09-23] MEDS: BISACODYL TAB 5 MG TAB PO SCH (09:02)
[2018-09-23] MEDS: FAMOTIDINE 20 MG TAB PO SCH (09:02)
[2018-09-23] MEDS: HYDROcodone 5MG/APAP 325MG 1 EA TAB PO PRN (09:02)
[2018-09-23] MEDS: MULTIPLE VITAMIN 1 EA TAB PO SCH (09:02)
[2018-09-23] MEDS: ESTRADIOL TAB 1 MG PO SCH (09:02)
[2018-09-23] MEDS: POLYETHYLENE GLYCOL 3350 17 GM PCKT PO SCH (09:03)
[2018-09-23] MEDS ORDERED: AZITHROMYCIN IV 500 MG in SODIUM CHLORIDE 0.9% 250ML 250 ML IVPB ONE (10:09)
[2018-09-23] MEDS ORDERED: AZITHROMYCIN IV 500 MG VIAL IVPB ONE (10:12)
[2018-09-23 12:27] VITALS: BP 119/68; TEMP 97.7; O2SAT 99
--- NOTE | 2018-09-24 17:49 | DS ---
SUPERVISING PHYSICIAN: Fidel Yip M.D. DISCHARGE DIAGNOSIS: 1. Healthcare acquired pneumonia, right sided, with the patient having been on antibiotics within the last several months for treatment of osteomyelitis. Prior to admission she was treated with vancomycin and cefepime for an Achilles infection and the patient is showing improvement in the hospital on vancomycin, Meropenem and azithromycin. 2. History of esophageal spasms with continued spasms with the patient on verapamil with some pain relief GI cocktail and Tums. 3. Chest pains, likely secondary to #2 with questionable esophagitis versus gastritis with the patient having exacerbation of gastroesophageal reflux disease that has been poorly controlled. 4. Cholelithiasis without any evidence of cholecystitis. 5. History of depression. 6. Chronic hypothyroidism on supplementation. 7. Gastroesophageal reflux disease, poorly controlled, likely contributing to chest pain. HISTORY OF PRESENT ILLNESS: This is a 58 year-old female patient who went to the [facility] stating she had symptoms that included a cough that had been progressively worsening over the last 2 weeks. She had general malaise with aches and pains. She had extensive surgery starting last December on her left Achilles including 4 different surgeries with reconstructions. She has been on antibiotics for well over 7 weeks. She was on outpatient angioplasty therapy under the care of Dr. Zhang with vancomycin and Cefepime. She initially was to have 3 weeks of total treatment. She was seen by Zenaida Fregoso, nurse practitioner. Vital signs in the clinic showed she was afebrile with unremarkable vital signs, satting 97% on room air. Laboratories were then completed and showed she had a mild leukocytosis with a left shift. Chemistries were fairly unremarkable with a BUN of 20, otherwise creatinine was normal. Liver functions were all within normal limits. Chest x-ray was obtained and per radiology interpretation there was note of right perihilar and right upper lobe infiltrates consistent with pneumonia. She had an Influenza by PCR completed that was reportedly negative. The case was discussed with Dr. Zhang who requested the patient be admitted to the the hospital for initiation of treatment of underlying right sided pneumonia with concerns for hospital acquired pneumonia since the patient had been on multiple antibiotics within the last month. She was admitted to the hospital for initiation of antibiotic treatment. HOSPITAL COURSE: She was continued on vancomycin then azithromycin and Meropenem were started. The case was discussed with Dr. Zhang throughout her stay. She suggested that she be on 3 weeks of antibiotics and see how she responded to treatment. DVT prophylaxis was started as well as aggressive pulmonary hygiene and q.i.d. DuoNeb treatments. Clinically she continued to improve but on the day prior to discharge she did have a fever up to 100.5. Again Dr. Zhang was consulted and she felt that since she had been on antibiotic therapy for quite some time that she needed to be fever free prior to discharge. Also during her stay, she had some substernal chest pain that was unsure if it had to do with her heart or her GI tract. She was found to have cholelithiasis. There were concerns for esophageal spasms. A GI cocktail tended to improve her symptoms and those have been resolved after 24 hours. She has been fever free for 24 hours and she has received her Meropenem, azithromycin and vancomycin today. She will be discharged today in stable condition. LABORATORY: Lab studies are per the History of Present Illness as well as followup CBC was unremarkable. She did have a hemoglobin of 11.4, hematocrit 34.3, white count 6,900. Cardiac workup was negative. She had 2 negative troponins. Followup metabolic panels were unremarkable with electrolytes that were within normal limits. The night that she spiked a fever blood cultures were drawn and preliminary blood cultures showed no growth after 24 hours. RADIOLOGY: She had a gallbladder ultrasound that showed: 1. Cholelithiasis of the gallbladder, multiple stones similar in appearance with the prior study in December of 2017. Polyp was not seen but could be obscured by stones. No wall thickening or fluid. Non-tender with transducer pressure. Common bile duct normal caliber. 2. Mild steatosis of the liver, otherwise unremarkable with no ascites. Pancreas and right kidney are negative. Aorta is obscured by echogenic shadows from gallstones. Final chest x-ray shows stable appearance of the chest with stable left basilar subsegmental atelectasis or infiltrate from right supra and infrahilar infiltrates were not significantly changed from prior. DISCHARGE PLAN: The patient will be discharged home in stable condition. She is to resume her previous diet and increase her activity as tolerated. She has a followup appointment with Josué Box, her primary care provider, on 10/02/18 at 8:45 AM. She is to resume her outpatient antibiotic therapy. It is recommended at her followup appointment with Dr. Box that they verify her appointment with Dr. Zhang and also see the length of treatment that Dr. Zhang would like to continue her antibiotic therapy on. She also needs a GI consultation. She had seen Dr. Adair in the past but will need an upper and lower GI scope. She sees Dr. Vail, her orthopedic surgeon in [place], and Dr. Vail is recommending a general surgeon in [place] for her to follow her cholelithiasis. She is to resume her outpatient vancomycin and Cefepime infusion. Her vancomycin will be per Pharmacy protocol. In addition to that I have given her Albuterol sulfate nebs and a prescription for a nebulizer machine. She is to return to the hospital or followup with Dr. Box for any problems or complications. #[id number] [facility]
== END 2018-09-23 12:00 | disposition home or self-care (01) | DRG 195 ==
LOC: MS 14:20 → INTOOBSV 14:20 → OBSVTOIN 09-22 17:15
PROVIDERS: ADMIT Family Medicine; ATTEND Nurse Practitioner Family
DX: J18.9 Pneumonia, unspecified organism (principal); E03.9 Hypothyroidism, unspecified; I10 Essential (primary) hypertension; E66.9 Obesity, unspecified; K22.4 Dyskinesia of esophagus; K21.9 Gastro-esophageal reflux disease without esophagitis; K80.20 Calculus of gallbladder without cholecystitis without obstruction; F32.9 Major depressive disorder, single episode, unspecified; E11.9 Type 2 diabetes mellitus without complications; Y95 Nosocomial condition; Z79.2 Long term (current) use of antibiotics; Z95.828 Presence of other vascular implants and grafts; Z98.84 Bariatric surgery status; Z90.49 Acquired absence of other specified parts of digestive tract; Z96.641 Presence of right artificial hip joint; Z79.891 Long term (current) use of opiate analgesic; Z79.899 Other long term (current) drug therapy; Z88.5 Allergy status to narcotic agent; Z68.31 Body mass index [BMI] 31.0-31.9, adult

== ENCOUNTER → 2018-09-19 | Outpatient (CLI) | payer OTHER ==
--- NOTE | 2018-09-19 11:02 | RAD ---
EXAM DESCRIPTION: Chest,2 Views CLINICAL HISTORY: FEVER COMPARISON: Previous study September 12, 2018 TECHNIQUE: PA/lateral FINDINGS: Right central line catheter from the right upper extremity is seen with tip at the mid to lower superior vena caval level. Heart size is normal with normal pulmonary vascularity. No pleural effusion or pneumothorax. Infiltrate in the right lung appears new compared to the previous study involving the right upper lobe and right perihilar region. The left lung remains clear. Lateral view shows intact sternum and T-spine. IMPRESSION: Right perihilar and right upper lobe infiltrate consistent with pneumonia. Electronically signed by: Leo Joel MD 09/19/2018 11:00 AM CDT
== END ==
LOC: LAB.O 09:44
PROVIDERS: ATTEND Nurse Practitioner Family
DX: R50.9 Fever, unspecified (principal); R91.8 Other nonspecific abnormal finding of lung field

== ENCOUNTER 2018-09-24 08:00 | Outpatient (CLI) | payer OTHER ==
--- NOTE | 2018-09-12 21:14 | RAD ---
EXAM: XR Chest, 1 View CLINICAL HISTORY: 57 years old and is Female; Proper placement of PICC line. TECHNIQUE: Frontal view of the chest. COMPARISON: No relevant prior studies available. FINDINGS: Limitations: None. Lungs: Chronic appearing mild interstitial thickening noted. No consolidation. Pleural space: Unremarkable. No pneumothorax. Heart: Unremarkable. No cardiomegaly. Mediastinum: Unremarkable. Bones/joints: Unremarkable. Tubes, lines and devices: Right percutaneous catheter has been placed and crosses the midline and extending toward the left subclavian vein. IMPRESSION: Right percutaneous catheter has been placed and crosses the midline and extending toward the left subclavian vein. Electronically signed by: Maggie Lim MD 09/12/2018 9:12 PM CDT
--- NOTE | 2018-09-12 22:35 | RAD ---
EXAM: XR Chest, 1 View CLINICAL HISTORY: 57 years old and is Female; PICC line placement TECHNIQUE: Frontal view of the chest. COMPARISON: Image about one hour earlier. FINDINGS: Limitations: None. Lungs: Unremarkable. No consolidation. Pleural space: Unremarkable. No pneumothorax. Heart: Unremarkable. No cardiomegaly. Mediastinum: Unremarkable. Bones/joints: Unremarkable. Tubes, lines and devices: The right percutaneous catheter has been repositioned and now terminates in the distal third of the SVC. IMPRESSION: Right percutaneous catheter repositioned and in good position. Electronically signed by: Maggie Lim MD 09/12/2018 10:34 PM CDT
[2018-09-12] MEDS: CEFEPIME 2 GM in SODIUM CHL 0.9% 50ML MIN-BAG+ 50 ML IVPB SCH (22:40)
[2018-09-13] MEDS: CEFEPIME 2 GM in SODIUM CHL 0.9% 50ML MIN-BAG+ 50 ML IVPB SCH ×2 (20:00→20:14)
[2018-09-14] MEDS: CEFEPIME 2 GM in SODIUM CHL 0.9% 50ML MIN-BAG+ 50 ML IVPB SCH ×2 (09:04→19:51)
[2018-09-14] MEDS: VANCOMYCIN HCL INJ 1,000 MG, VANCOMYCIN HCL INJ 250 MG in SODIUM CHLORIDE 0.9% 250ML 25... IVPB SCH ×2 (09:16→20:28)
[2018-09-14] MEDS: SODIUM CHLORIDE 0.9% (FLUSH) 10 ML SYG IV PRN (19:51)
[2018-09-15] MEDS: SODIUM CHLORIDE 0.9% (FLUSH) 10 ML SYG IV PRN ×3 (08:02→20:37)
[2018-09-15] MEDS: CEFEPIME 2 GM in SODIUM CHL 0.9% 50ML MIN-BAG+ 50 ML IVPB SCH ×2 (08:03→20:02)
[2018-09-15] MEDS: VANCOMYCIN HCL INJ 1,000 MG, VANCOMYCIN HCL INJ 250 MG in SODIUM CHLORIDE 0.9% 250ML 25... IVPB SCH ×2 (08:38→20:36)
[2018-09-16] MEDS: SODIUM CHLORIDE 0.9% (FLUSH) 10 ML SYG IV PRN ×3 (07:55→20:22)
[2018-09-16] MEDS: CEFEPIME 2 GM in SODIUM CHL 0.9% 50ML MIN-BAG+ 50 ML IVPB SCH ×2 (07:55→19:52)
[2018-09-16] MEDS: VANCOMYCIN HCL INJ 1,000 MG, VANCOMYCIN HCL INJ 250 MG in SODIUM CHLORIDE 0.9% 250ML 25... IVPB SCH ×2 (08:30→20:22)
[2018-09-17] MEDS: SODIUM CHLORIDE 0.9% (FLUSH) 10 ML SYG IV PRN ×4 (07:49→21:57)
[2018-09-17] MEDS: CEFEPIME 2 GM in SODIUM CHL 0.9% 50ML MIN-BAG+ 50 ML IVPB SCH ×2 (07:50→19:59)
[2018-09-17] MEDS: VANCOMYCIN HCL INJ 1,000 MG, VANCOMYCIN HCL INJ 250 MG in SODIUM CHLORIDE 0.9% 250ML 25... IVPB SCH ×2 (08:26→20:30)
[2018-09-18] MEDS: CEFEPIME 2 GM in SODIUM CHL 0.9% 50ML MIN-BAG+ 50 ML IVPB SCH ×2 (07:33→20:17)
[2018-09-18] MEDS: SODIUM CHLORIDE 0.9% (FLUSH) 10 ML SYG IV PRN ×4 (07:33→21:58)
[2018-09-18] MEDS: VANCOMYCIN HCL INJ 1,000 MG in SODIUM CHLORIDE 0.9% 250ML 250 ML IVPB SCH ×2 (08:18→20:52)
[2018-09-19] MEDS: VANCOMYCIN HCL INJ 1,000 MG in SODIUM CHLORIDE 0.9% 250ML 250 ML IVPB SCH (07:31)
[2018-09-19] MEDS: CEFEPIME 2 GM in SODIUM CHL 0.9% 50ML MIN-BAG+ 50 ML IVPB SCH (07:31)
[2018-09-24] MEDS: CEFEPIME 2 GM in SODIUM CHL 0.9% 50ML MIN-BAG+ 50 ML IVPB SCH ×2 (07:59→19:52)
[~2018-09-24 08:00] MED LIST changes: +CEFEPIME 2 GM in SODIUM CHL 0.9% 50ML MIN-BAG+ 50 ML IVPB ONE; -IPRATROPIUM/ALBUTEROL 3 ML VIAL NEB ONE; +VANCOMYCIN HCL INJ 1,000 MG in SODIUM CHLORIDE 0.9% 250ML 250 ML IVPB ONE; +VANCOMYCIN HCL INJ 1,000 MG, VANCOMYCIN HCL INJ 250 MG in SODIUM CHLORIDE 0.9% 250ML 25... IVPB ONE; +VANCOMYCIN HCL INJ 1,000 MG, VANCOMYCIN HCL INJ 250 MG in SODIUM CHLORIDE 0.9% 250ML 25... IVPB SCH; +VANCOMYCIN HCL INJ 1,000 MG, VANCOMYCIN HCL INJ 500 MG in SODIUM CHLORIDE 0.9% 250ML 25... IVPB ONE; +VANCOMYCIN HCL IVPB ONE; +VANCOMYCIN PER PHARMACY IVPB SCH; +[UNRECOGNIZED DRUG - OTHER] IVPB ONE
[2018-09-24] MEDS ORDERED: VANCOMYCIN PER PHARMACY IVPB SCH (08:30)
[2018-09-24] MEDS: VANCOMYCIN HCL INJ 1,000 MG in SODIUM CHLORIDE 0.9% 250ML 250 ML IVPB SCH ×2 (08:35→20:38)
[2018-09-24] MEDS: SODIUM CHLORIDE 0.9% (FLUSH) 10 ML SYG IV PRN ×3 (19:52→23:36)
[2018-09-24] MEDS ORDERED: VANCOMYCIN HCL INJ 1,000 MG in SODIUM CHLORIDE 0.9% 250ML 250 ML IVPB SCH (21:00)
[2018-09-25] MEDS: SODIUM CHLORIDE 0.9% (FLUSH) 10 ML SYG IV PRN ×4 (07:42→22:30)
[2018-09-25] MEDS: CEFEPIME 2 GM in SODIUM CHL 0.9% 50ML MIN-BAG+ 50 ML IVPB SCH ×2 (07:43→19:55)
[2018-09-25] MEDS: VANCOMYCIN HCL INJ 1,000 MG in SODIUM CHLORIDE 0.9% 250ML 250 ML IVPB SCH ×2 (08:37→20:30)
[2018-09-26] MEDS: SODIUM CHLORIDE 0.9% (FLUSH) 10 ML SYG IV PRN ×2 (07:54→19:49)
[2018-09-26] MEDS: CEFEPIME 2 GM in SODIUM CHL 0.9% 50ML MIN-BAG+ 50 ML IVPB SCH ×2 (07:55→19:48)
[2018-09-26] MEDS: VANCOMYCIN HCL INJ 1,000 MG in SODIUM CHLORIDE 0.9% 250ML 250 ML IVPB SCH ×2 (08:42→20:16)
[2018-09-27] MEDS: CEFEPIME 2 GM in SODIUM CHL 0.9% 50ML MIN-BAG+ 50 ML IVPB SCH ×2 (08:01→19:28)
[2018-09-27] MEDS: SODIUM CHLORIDE 0.9% (FLUSH) 10 ML SYG IV PRN ×4 (08:02→22:10)
[2018-09-27] MEDS: VANCOMYCIN HCL INJ 1,000 MG in SODIUM CHLORIDE 0.9% 250ML 250 ML IVPB SCH ×2 (08:45→20:06)
[2018-09-28] MEDS: VANCOMYCIN HCL INJ 1,000 MG in SODIUM CHLORIDE 0.9% 250ML 250 ML IVPB SCH ×2 (14:44→20:09)
[2018-09-28] MEDS: CEFEPIME 2 GM in SODIUM CHL 0.9% 50ML MIN-BAG+ 50 ML IVPB SCH ×2 (14:44→19:42)
[2018-09-28] MEDS: SODIUM CHLORIDE 0.9% (FLUSH) 10 ML SYG IV PRN ×2 (19:42→20:07)
[2018-09-29] MEDS: SODIUM CHLORIDE 0.9% (FLUSH) 10 ML SYG IV PRN ×3 (08:04→19:51)
[2018-09-29] MEDS: CEFEPIME 2 GM in SODIUM CHL 0.9% 50ML MIN-BAG+ 50 ML IVPB SCH ×2 (08:04→19:10)
[2018-09-29] MEDS: VANCOMYCIN HCL INJ 1,000 MG in SODIUM CHLORIDE 0.9% 250ML 250 ML IVPB SCH ×2 (08:57→19:50)
[2018-09-30] MEDS: CEFEPIME 2 GM in SODIUM CHL 0.9% 50ML MIN-BAG+ 50 ML IVPB SCH ×2 (07:49→19:19)
[2018-09-30] MEDS: VANCOMYCIN HCL INJ 1,000 MG in SODIUM CHLORIDE 0.9% 250ML 250 ML IVPB SCH ×2 (08:23→19:46)
[2018-09-30] MEDS: SODIUM CHLORIDE 0.9% (FLUSH) 10 ML SYG IV PRN ×2 (19:19→19:46)
[2018-10-01] MEDS: CEFEPIME 2 GM in SODIUM CHL 0.9% 50ML MIN-BAG+ 50 ML IVPB SCH ×2 (07:16→19:36)
[2018-10-01] MEDS: VANCOMYCIN HCL INJ 1,000 MG in SODIUM CHLORIDE 0.9% 250ML 250 ML IVPB SCH ×2 (07:50→20:15)
[2018-10-01] MEDS: SODIUM CHLORIDE 0.9% (FLUSH) 10 ML SYG IV PRN (19:37)
[2018-10-02] MEDS: SODIUM CHLORIDE 0.9% (FLUSH) 10 ML SYG IV PRN ×3 (07:16→20:01)
[2018-10-02] MEDS: CEFEPIME 2 GM in SODIUM CHL 0.9% 50ML MIN-BAG+ 50 ML IVPB SCH ×2 (07:16→19:30)
[2018-10-02] MEDS: VANCOMYCIN HCL INJ 1,000 MG in SODIUM CHLORIDE 0.9% 250ML 250 ML IVPB SCH ×2 (08:16→20:01)
[2018-10-03] MEDS: CEFEPIME 2 GM in SODIUM CHL 0.9% 50ML MIN-BAG+ 50 ML IVPB SCH ×3 (07:49→19:17)
[2018-10-03] MEDS: VANCOMYCIN HCL INJ 1,000 MG in SODIUM CHLORIDE 0.9% 250ML 250 ML IVPB SCH ×3 (08:33→19:47)
[2018-10-03] MEDS: SODIUM CHLORIDE 0.9% (FLUSH) 10 ML SYG IV PRN ×2 (19:18→19:48)
[2018-10-04] MEDS: VANCOMYCIN HCL INJ 1,000 MG in SODIUM CHLORIDE 0.9% 250ML 250 ML IVPB SCH ×2 (19:16→19:51)
[2018-10-04] MEDS: CEFEPIME 2 GM in SODIUM CHL 0.9% 50ML MIN-BAG+ 50 ML IVPB SCH ×2 (19:16)
[2018-10-04] MEDS: SODIUM CHLORIDE 0.9% (FLUSH) 10 ML SYG IV PRN ×2 (19:17→19:51)
[2018-10-05] MEDS: SODIUM CHLORIDE 0.9% (FLUSH) 10 ML SYG IV PRN ×3 (07:19→19:52)
[2018-10-05] MEDS: CEFEPIME 2 GM in SODIUM CHL 0.9% 50ML MIN-BAG+ 50 ML IVPB SCH ×2 (07:20→19:10)
[2018-10-05] MEDS: VANCOMYCIN HCL INJ 1,000 MG in SODIUM CHLORIDE 0.9% 250ML 250 ML IVPB SCH ×2 (07:55→19:51)
[2018-10-06] MEDS: SODIUM CHLORIDE 0.9% (FLUSH) 10 ML SYG IV PRN ×3 (07:37→20:11)
[2018-10-06] MEDS: CEFEPIME 2 GM in SODIUM CHL 0.9% 50ML MIN-BAG+ 50 ML IVPB SCH ×2 (07:38→19:38)
[2018-10-06] MEDS: VANCOMYCIN HCL INJ 1,000 MG, VANCOMYCIN HCL INJ 250 MG in SODIUM CHLORIDE 0.9% 250ML 25... IVPB SCH ×2 (08:25→20:10)
[2018-10-07] MEDS: SODIUM CHLORIDE 0.9% (FLUSH) 10 ML SYG IV PRN ×4 (07:29→21:22)
[2018-10-07] MEDS: CEFEPIME 2 GM in SODIUM CHL 0.9% 50ML MIN-BAG+ 50 ML IVPB SCH ×2 (07:29→19:17)
[2018-10-07] MEDS: VANCOMYCIN HCL INJ 1,000 MG, VANCOMYCIN HCL INJ 250 MG in SODIUM CHLORIDE 0.9% 250ML 25... IVPB SCH ×2 (08:01→19:53)
[2018-10-08] MEDS: SODIUM CHLORIDE 0.9% (FLUSH) 10 ML SYG IV PRN ×6 (07:18→21:19)
[2018-10-08] MEDS: CEFEPIME 2 GM in SODIUM CHL 0.9% 50ML MIN-BAG+ 50 ML IVPB SCH ×2 (07:19→19:20)
[2018-10-08] MEDS: VANCOMYCIN HCL INJ 1,000 MG, VANCOMYCIN HCL INJ 250 MG in SODIUM CHLORIDE 0.9% 250ML 25... IVPB SCH ×2 (07:53→19:53)
[2018-10-09] MEDS: SODIUM CHLORIDE 0.9% (FLUSH) 10 ML SYG IV PRN ×4 (07:33→21:28)
[2018-10-09] MEDS: CEFEPIME 2 GM in SODIUM CHL 0.9% 50ML MIN-BAG+ 50 ML IVPB SCH ×2 (07:33→19:18)
[2018-10-09] MEDS: VANCOMYCIN HCL INJ 1,000 MG, VANCOMYCIN HCL INJ 250 MG in SODIUM CHLORIDE 0.9% 250ML 25... IVPB SCH ×2 (08:18→19:58)
[2018-10-10] MEDS: SODIUM CHLORIDE 0.9% (FLUSH) 10 ML SYG IV PRN ×2 (07:34→19:19)
[2018-10-10] MEDS: CEFEPIME 2 GM in SODIUM CHL 0.9% 50ML MIN-BAG+ 50 ML IVPB SCH ×2 (07:35→19:18)
[2018-10-10] MEDS: VANCOMYCIN HCL INJ 1,000 MG, VANCOMYCIN HCL INJ 250 MG in SODIUM CHLORIDE 0.9% 250ML 25... IVPB SCH ×2 (08:10→19:49)
[2018-10-11] MEDS: SODIUM CHLORIDE 0.9% (FLUSH) 10 ML SYG IV PRN ×3 (07:20→19:50)
[2018-10-11] MEDS: CEFEPIME 2 GM in SODIUM CHL 0.9% 50ML MIN-BAG+ 50 ML IVPB SCH ×2 (07:24→19:20)
[2018-10-11 07:35] VITALS: O2SAT 98
[2018-10-11] MEDS: VANCOMYCIN HCL INJ 1,000 MG, VANCOMYCIN HCL INJ 250 MG in SODIUM CHLORIDE 0.9% 250ML 25... IVPB SCH ×2 (07:55→19:52)
[2018-10-11 20:16] VITALS: BP 130/73; TEMP 98.4
== END 2018-10-11 15:00 | disposition home or self-care (01) ==
LOC: INFRM 08:00
PROVIDERS: ATTEND Internal Medicine Infectious Disease
DX: M86.172 Other acute osteomyelitis, left ankle and foot (principal)
CPT/HCPCS: 36415; 80053; 80202; 82565; 85025; 85651; 86140; 96365; 96366; 96367; J0692; J3370; J7050

== ENCOUNTER 2018-10-19 05:28 | Day surgery (SDC) | payer OTHER ==
[2018-10-19] MEDS ORDERED: KETOROLAC TROMETHAMINE INJ 30 MG/ML VIAL ONE (07:00)
[2018-10-19] MEDS ORDERED: GLYCOPYRROLATE 0.2 MG/ML VIAL ONE (07:00)
[2018-10-19] MEDS ORDERED: DEXAMETHASONE INJ 10 MG/ML VIAL ONE (07:00)
[2018-10-19] MEDS ORDERED: METOCLOPRAMIDE HCL INJ 10 MG/2 ML VIAL ONE (07:00)
[2018-10-19] MEDS ORDERED: PROPOFOL 200 MG/20 ML VIAL IV ONE (07:00)
[2018-10-19] MEDS ORDERED: raNITIdine HCL INJ 25 MG/ML VIAL ONE (07:00)
[2018-10-19] MEDS ORDERED: LACTATED RINGERS 1,000 ML ONE (07:09)
[2018-10-19] MEDS ORDERED: VANCOMYCIN HCL INJ 1,000 MG VIAL IVPB ONE ×2 (07:10→07:35)
[2018-10-19] MEDS ORDERED: SODIUM CHLORIDE 0.9% 250ML 250 ML ONE (07:10)
[2018-10-19] MEDS ORDERED: LACTATED RINGERS 1,000 ML IVS ONE (07:35)
[2018-10-19] MEDS ORDERED: BUPIVACAINE 0.5% W/EPI 30 ML VIAL INJ ONE (08:23)
[2018-10-19] MEDS ORDERED: MIDAZOLAM INJ 2 MG/2 ML VIAL ONE (09:16)
[2018-10-19] MEDS ORDERED: fentaNYL CITRATE INJ 50 MCG/ML AMP ONE (09:16)
[2018-10-19] MEDS ORDERED: SUGAMMADEX SODIUM 200 MG/2 ML VIAL IV ONE (09:16)
[2018-10-19] MEDS ORDERED: ROCURONIUM BROMIDE 10 MG/ML VIAL ONE (09:16)
[2018-10-19] MEDS ORDERED: KETAMINE HCL 50 MG/ML SYG IV ONE (09:52)
[2018-10-19] MEDS ORDERED: HYDROmorphone HCL INJ 2 MG/ML VIAL ONE (10:32)
--- NOTE | 2018-10-19 11:11 | OP ---
DATE OF PROCEDURE: 10/19/18 PREOPERATIVE DIAGNOSIS: 1. Symptomatic cholelithiasis. POSTOPERATIVE DIAGNOSIS: 1. Symptomatic cholelithiasis. PROCEDURE: 1. Laparoscopic cholecystectomy with attempted cholangiogram. SURGEON: Ramiro Julio MD. ANESTHESIA: General and local. FINDINGS: The cystic duct was very small upon trying to perform a ductotomy for cholangiogram. It was too small for the cholangiocatheter and very low suspicion for common duct, so we ended up just ligating it. She had multiple, multiple smaller stones in the gallbladder. Upon entry with a Visiport, which was done due to previous surgery, there was a rent made in the mesentery. This was observed both anterior and posterior throughout the entire case. Oozing had stopped. There was no evidence of hematoma nor expanding hematoma or any ongoing bleeding, so I think it is nonconsequential. COMPLICATIONS: None. ESTIMATED BLOOD LOSS: Minimal. CONDITION: Stable. PLAN: Discharge. SPECIMEN: Gallbladder. INDICATION: As stated. PROCEDURE: General anesthesia was induced. She was prepped and draped in sterile fashion. The patient had previous gastric sleeve surgery as well as colectomy and had midline incision, so the VisiPort was used in the right mid abdomen subcostal area while maintaining upward traction. Local anesthesia was placed. A jacqueline was made. The 5 mm camera was placed into the 5 mm Hydrobee VisiPort and gently twisted back and forth, entered through. We did not see a definite muscular layer until we got into the abdomen. Once we identified we were likely in the abdomen, we withdrew, insufflated. Indeed we were in the abdomen, but apparently had gone slightly posterior. Once we insufflated, I was then able to see the midline. It was relatively free. We put the 5 mm port in the umbilicus. We changed the camera to this area. We then placed a subxiphoid port in the usual fashion and the other right lateral port. That is when I examined the mesentery. There was a small amount of blood. This was aspirated. We put the patient head down and lateral and examined the area where we saw a small rent in the mesentery. It was inferior and lateral, so more in the psoas area, so little suspicion it would involve the duodenum or the ureter or anything like that. What we saw on the VisiPort itself just showed muscular tissue separation. There was no evidence of any bowel injury either. We were to observe this throughout the case. We then identified the gallbladder easily. It was retracted superior and lateral. The infundibulum was grasped. The infundibular structure was dissected free. The duct and artery were clearly visualized through the triangle of Calot. A clip was placed on the proximal duct. A ductotomy was performed. We attempted to put the cholangiocatheter in, it was too small, so we cut a little more and actually transected this small duct. We tried to get the catheter in, but it would just not go in. At that point, we elevated the long cystic duct and doubly ligated and triple ligated the artery. We dissected the gallbladder off the fossa and totally removed it with the EndoCatch bag. The fossa was examined. It remained hemostatic. Clips were intact. There was no bleeding or bile leak. At that point, we looked down again and examined the small bowel mesentery and there was a small clot formed. There was no evidence of continued bleeding, so it appears that there is no evidence of complication and no reason to explore further. The subxiphoid fascia was then closed with 0 Vicryl using a suture passer. It was airtight and non-bleeding. The remaining trocars were removed. There was no bleeding from the trocar sites. The wounds were irrigated and closed with Monocryl. Dressings were applied. The patient was awakened and taken to Recovery in stable condition to be discharged. #[id number] [facility]
[2018-10-19] MEDS: HYDROmorphone HCL INJ 2 MG/ML VIAL ONE ×5 (11:20→12:00)
[2018-10-19] MEDS ORDERED: HEPARIN SODIUM 100 U/ML 5 ML SYG IV ONE (12:55)
[2018-10-19] MEDS ORDERED: SODIUM CHLORIDE 0.9% (FLUSH) 10 ML SYG IV ONE (12:55)
[2018-10-19 14:15] VITALS: BP 128/49; TEMP 98.3; O2SAT 95
== END 2018-10-19 13:35 | disposition home or self-care (01) ==
LOC: AMB 05:28
PROVIDERS: ATTEND Surgery
DX: K80.10 Calculus of gallbladder with chronic cholecystitis without obstruction (principal); Z88.5 Allergy status to narcotic agent; Z90.710 Acquired absence of both cervix and uterus
CPT/HCPCS: 00790; 47563; A4216; J1100; J1170; J1642; J1885; J2250; J2765; J2780; J3010; J3370; J3490; J7050; J7120

== ENCOUNTER → 2018-12-12 | Outpatient (CLI) | payer OTHER ==
--- NOTE | 2018-12-13 16:07 | MAM ---
EXAM DESCRIPTION: 3D Screening BILATERAL : Digital Mammography. CLINICAL HISTORY: 58 years Female ANNUAL SCREENING . No complaints. No personal history of breast cancer. Sister with breast cancer. Menarche age 12. Childbirth. Currently on HRT. Postmenopausal.. Lifetime risk of developing breast cancer (Tyrer-Cuzick model)(%): 20.9 COMPARISON: Bilateral screening digital breast tomosynthesis 10/25/2017. 2-D digital screening bilateral mammography 20 October 2016. No prior reports available. TECHNIQUE: Bilateral CC and MLO projection full-field images, digital tomosynthesis mammographic technique Bilateral digital 2-D full-field MLO images. CAD not available for tomosynthesis or 2-D images. FINDINGS: The breast parenchymal density pattern is: Scattered areas of fibroglandular density. No skin thickening or nipple retraction. Bilateral solitary microcalcifications. New benign type calcifications bilaterally. Nodular-type fibroglandular changes more evident in the left breast. No new focal, stellate mass or density, focal asymmetry , and no suspicious microcalcifications bilaterally. Stable mammograms compared to prior study. Taking into account, differences in mammographic technique. IMPRESSION: Benign exam. BIRAD CATEGORY: 2 BENIGN FINDINGS. RECOMMENDATIONS: FOLLOW UP: Routine digital bilateral mammographic screening, one year interval from December 2018. Should also consider bilateral breast MRI scan without and with gadolinium IV contrast, due to risk factor 20 percent. Please see below*. Written communication explaining the IMPRESSION and follow-up, will be mailed to the patient and referring health care provider. According to the [employer], yearly mammograms are recommended starting at age 40 and continuing as long as a woman is in good health. Any breast change noted on a breast self-exam should be reported promptly to the patient's healthcare provider. *Breast MRI is recommended for women with an approximately 20-25% or greater lifetime risk of breast cancer, including women with a strong family history of breast or ovarian cancer and women who have been treated for Hodgkin's disease. A negative mammographic report should not delay tissue diagnosis in patients with significant clinical history or physical findings. Extremely dense breast tissue limits the sensitivity of digital mammography. Electronically signed by: Mauro Reynolds MD 12/13/2018 4:05 PM CDT
== END ==
LOC: MAMMO 10:00
PROVIDERS: ATTEND Emergency Medicine
DX: Z12.31 Encounter for screening mammogram for malignant neoplasm of breast (principal)

== ENCOUNTER 2019-04-03 12:44 | Emergency (ER) | payer OTHER ==
[2019-04-03 12:56] VITALS: TEMP 97
[2019-04-03] MEDS ORDERED: HYDROcodone 7.5MG/APAP 325MG 1 EA TAB PO ONE (13:21)
--- NOTE | 2019-04-03 14:02 | RAD ---
EXAM DESCRIPTION: Hip,Right 2 Views CLINICAL HISTORY: 58 years Female, right hip pain COMPARISON: None. FINDINGS: Two views of the right hip show postoperative changes related to previous right hip arthroplasty. No loosening or other hardware complication. No periprosthetic or other fracture. The soft tissues are unremarkable except for a few pelvic phleboliths. IMPRESSION: Uncomplicated postoperative changes in the right hip. No acute right hip abnormality. Electronically signed by: Ulises Gallagher MD 04/03/2019 2:01 PM [facility]
--- NOTE | 2019-04-03 14:02 | RAD ---
EXAM DESCRIPTION: Pelvis CLINICAL HISTORY: 58 years Female, fall with right hip pain COMPARISON: None. FINDINGS: Single AP view the pelvis shows no displaced pelvic fracture. Partially visualized postoperative changes in the right hip without apparent hardware complication. Pelvic phleboliths. Degenerative changes in the lower lumbar spine. IMPRESSION: Partially visualized postoperative changes in the right hip and degenerative changes elsewhere, but no acute pelvic abnormality. If clinical suspicion of pelvic injury persists, CT should be considered. Electronically signed by: Ulises Gallagher MD 04/03/2019 2:00 PM [facility]
[2019-04-03 14:11] VITALS: O2SAT 95
--- NOTE | 2019-04-03 14:21 | ED.PDOC ---
History of Present Illness - General Chief Complaint: Trauma Stated Complaint: right hip, left ankle pain Time Seen by Provider: 04/03/19 13:10 Source: patient, RN notes reviewed, Vital Signs reviewed, family Exam Limitations: no limitations - History of Present Illness Initial Comments: Patient is a 58-year-old white female who appears older than her stated age who presents with complaints of right hip pain and right low back pain and pain radiating down her right leg status post fall today. There was no loss of consciousness and patient did not hit her head when she fell. She tripped and fell over her own dog trying to prevent it to run out in the street and getting hit. The pain is throbbing in nature it starts in her low back and radiates down to her right buttock and into her leg. The pain is sharp and stabbing. It is moderate in intensity and worsens with palpation or movement. Nothing seems to help the pain. This is similar to the sciatica she has had in the past. Timing/Duration: 1-3 hours Severity: moderate Improving Factors: nothing Worsening Factors: nothing Associated Symptoms: denies symptoms Allergies/Adverse Reactions: Allergies Codeine Allergy (Unknown, Verified 10/17/18 13:15) Home Medications: Ambulatory Orders Levothyroxine Sodium 25 mcg PO DAILY@0700 05/27/14 Meloxicam [Mobic] 15 mg PO DAILY 05/27/14 Multiple Vitamin [Multi Vitamin Daily] 1 tab PO DAILY 05/30/14 Esomeprazole Magnesium [Nexium] 40 mg PO DAILY 10/17/18 Estradiol [Estrace] 1 mg PO DAILY 10/17/18 Paroxetine HCl [Paroxetine HCl ER] 1 tablet PO BID 10/17/18 Vancomycin Per Pharmacy 1 ea IV INFUS BID 10/17/18 Verapamil HCl [Verapamil Hydrochloride] 1 tablet PO BID 10/17/18 Methylprednisolone [Medrol Dose Jarrett] 4 mg PO DAILY 6 Days #21 tab 04/03/19 Review of Systems - Review of Systems Constitutional: States: no symptoms reported, see HPI EENTM: States: no symptoms reported, see HPI Respiratory: States: no symptoms reported. Denies: orthopnea, short of breath, wheezing Cardiology: States: no symptoms reported. Denies: chest pain, palpitations, syncope Gastrointestinal/Abdominal: States: no symptoms reported. Denies: abdominal pain, diarrhea, nausea, vomiting Genitourinary: States: no symptoms reported. Denies: discharge, dysuria, frequency Musculoskeletal: States: see HPI, back pain, muscle stiffness. Denies: neck pain Neurological: States: no symptoms reported, see HPI Endocrine: States: flushing Hematologic/Lymphatic: States: no symptoms reported All other Systems: Reviewed and Negative Past Medical History (General) - Patient Medical History Hx Seizures: No Hx Stroke: No Hx Dementia: No Hx Asthma: No Hx of COPD: No Hx Cardiac Disorders: No Hx Congestive Heart Failure: No Hx Pacemaker: No Hx Hypertension: Yes Hx Thyroid Disease: Yes Hx Diabetes: Yes Hx Gastroesophageal Reflux: Yes Hx Renal Disease: No Hx Cancer: Yes - skin Hx of HIV: No Hx Hepatitis C: No Hx MRSA: No Surgical History: cholecystectomy, other - Vaccination History Hx Tetanus, Diphtheria Vaccination: Yes - 5-10 yrs Hx Influenza Vaccination: No Hx Pneumococcal Vaccination: No - Social History Hx Tobacco Use: No Hx Chewing Tobacco Use: No Hx Alcohol Use: No Hx Substance Use: No Hx Substance Use Treatment: No Hx Depression: No Hx Physical Abuse: No Hx Emotional Abuse: No Hx Suspected Abuse: No - Female History Patient is a Female of Child Bearing Age (10 -59 yrs old): No Patient : No Family Medical History - Family History Maternal Family History: Unknown Living Status: Hx Family Asthma: No Hx Family Congestive Heart Failure: No Hx Family Hypertension: Yes Hx Family Stroke: Yes Hx Cardiac Disease: No Hx Family Diabetes: Yes Hx Family Cancer: Yes Physical Exam - Physical Exam General Appearance: Alert, Anxious, Obvious distress, Well Developed, Well Groomed, Well Hydrated, Well Nourished Eye Exam: bilateral normal Ears, Nose, Throat: hearing grossly normal, normal ENT inspection, normal pharynx Neck: non-tender, full range of motion, supple, normal inspection Respiratory: chest non-tender, lungs clear, normal breath sounds, no respiratory distress, no accessory muscle use Cardiovascular/Chest: normal peripheral pulses, regular rate, rhythm, no edema, no gallop, no JVD, no murmur Peripheral Pulses: radial,right: 2+, radial,left: 2+, dorsalis pedis,right: 2+, dorsalis pedis,left: 2+ Gastrointestinal/Abdominal: normal bowel sounds, non tender, soft, no organomegaly, no pulsatile mass Back Exam: no CVA tenderness, no vertebral tenderness, muscle spasm - Right paralumbar muscle spasm with tenderness to palpation over the sciatic notch. 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 04/03/19 15:34 Patient is markedly improved after pain medication. Plan on discharge home at this time. I will discharge patient with a prescription for steroids. She has a prescription for Ultram at home and does not want anything stronger. I discussed the plan of care with the patient and her family and they voiced understanding and agreement with the plan of care. Dell Ugalde M.D. #[id number] - Results/Orders Results/Orders: EXAM DESCRIPTION: Hip,Right 2 Views CLINICAL HISTORY: 58 years Female, right hip pain COMPARISON: None. FINDINGS: Two views of the right hip show postoperative changes related to previous right hip arthroplasty. No loosening or other hardware complication. No periprosthetic or other fracture. The soft tissues are unremarkable except for a few pelvic phleboliths. IMPRESSION: Uncomplicated postoperative changes in the right hip. No acute right hip abnormality. Electronically signed by: Ulises Gallagher MD 04/03/2019 2:01 PM [facility] EXAM DESCRIPTION: Pelvis CLINICAL HISTORY: 58 years Female, fall with right hip pain COMPARISON: None. FINDINGS: Single AP view the pelvis shows no displaced pelvic fracture. Partially visualized postoperative changes in the right hip without apparent hardware complication. Pelvic phleboliths. Degenerative changes in the lower lumbar spine. IMPRESSION: Partially visualized postoperative changes in the right hip and degenerative changes elsewhere, but no acute pelvic abnormality. If clinical suspicion of pelvic injury persists, CT should be considered. Electronically signed by: Ulises Gallagher MD 04/03/2019 2:00 PM [facility] Departure - Departure Clinical Impression: Hip pain, right Fall Qualifiers: Encounter type: initial encounter Qualified Code(s): W19.XXXA - Unspecified fall, initial encounter Sciatica Qualifiers: Laterality: right Qualified Code(s): M54.31 - Sciatica, right side Time of Disposition: 15:37 Disposition: Discharge to Home or Self Care Condition: Good Departure Forms: ED Discharge - Pt. Copy, Patient Portal Self Enrollment Instructions: DI for Trauma Referrals: FORD NEUMANN [Primary Care Provider] - 1-5 Days Prescriptions: Methylprednisolone [Medrol Dose Jarrett] 4 mg PO DAILY 6 Days #21 tab Home Medications: Ambulatory Orders Levothyroxine Sodium 25 mcg PO DAILY@0700 05/27/14 Meloxicam [Mobic] 15 mg PO DAILY 05/27/14 Multiple Vitamin [Multi Vitamin Daily] 1 tab PO DAILY 05/30/14 Esomeprazole Magnesium [Nexium] 40 mg PO DAILY 10/17/18 Estradiol [Estrace] 1 mg PO DAILY 10/17/18 Paroxetine HCl [Paroxetine HCl ER] 1 tablet PO BID 10/17/18 Vancomycin Per Pharmacy 1 ea IV INFUS BID 10/17/18 Verapamil HCl [Verapamil Hydrochloride] 1 tablet PO BID 10/17/18 Methylprednisolone [Medrol Dose Jarrett] 4 mg PO DAILY 6 Days #21 tab 04/03/19
[2019-04-03 15:46] VITALS: BP 124/60
== END 2019-04-03 15:45 | disposition home or self-care (01) ==
LOC: ER 12:44
DX: M54.41 Lumbago with sciatica, right side (principal); I10 Essential (primary) hypertension; E07.9 Disorder of thyroid, unspecified; E11.9 Type 2 diabetes mellitus without complications; K21.9 Gastro-esophageal reflux disease without esophagitis; Z85.828 Personal history of other malignant neoplasm of skin; Z79.899 Other long term (current) drug therapy; Z88.5 Allergy status to narcotic agent

== ENCOUNTER → 2020-03-12 | Outpatient (CLI) | payer OTHER ==
--- NOTE | 2020-03-13 12:02 | MAM ---
EXAM DESCRIPTION: 3D Screening BILATERAL : Digital Mammography. CLINICAL HISTORY: 59 years Female ANNUAL SCREENING . No complaints. Female sibling with breast cancer. Remote family history of breast and ovarian cancer. Menarche age 12. age 34. Postmenopausal. Currently on HRT. Lifetime risk of developing breast cancer (Tyrer-Cuzick model)(%): 14.3. COMPARISON: Bilateral screening digital breast tomosynthesis December 2018 and October 2017 TECHNIQUE: Bilateral CC and MLO projection full-field images, digital tomosynthesis mammographic technique. Bilateral digital 2-D full-field MLO images. CAD available for 2-D images. FINDINGS: The breast parenchymal density pattern is: Scattered areas of fibroglandular density. Solitary microcalcifications. Axillary nodes. Intramammary lymph nodes stable. Nodular type of fibroglandular tissue changes. No skin thickening or nipple retraction No new focal, stellate mass or density, focal asymmetry , and no suspicious microcalcifications bilaterally. Stable mammograms compared to prior study. IMPRESSION: Benign exam. BIRAD CATEGORY: 2 BENIGN FINDINGS. RECOMMENDATIONS: FOLLOW UP: Routine digital bilateral mammographic screening, one year interval from February 2001. Written communication explaining the IMPRESSION and follow-up, will be mailed to the patient and referring health care provider. According to the [employer], yearly mammograms are recommended starting at age 40 and continuing as long as a woman is in good health. Any breast change noted on a breast self-exam should be reported promptly to the patient's healthcare provider. Breast MRI is recommended for women with an approximately 20-25% or greater lifetime risk of breast cancer, including women with a strong family history of breast or ovarian cancer and women who have been treated for Hodgkin's disease. A negative mammographic report should not delay tissue diagnosis in patients with significant clinical history or physical findings. Extremely dense breast tissue limits the sensitivity of digital mammography. Electronically signed by: Mauro Reynolds MD 03/13/2020 12:01 PM [facility]
== END ==
LOC: MAMMO 09:59
PROVIDERS: ATTEND Emergency Medicine
DX: Z12.31 Encounter for screening mammogram for malignant neoplasm of breast (principal)

== ENCOUNTER 2020-03-19 17:55 | Observation (INO) | payer OTHER ==
[2020-03-19] MEDS ORDERED: ASPIRIN (CHEWABLE) 81 MG TAB PO ONE (18:03)
--- NOTE | 2020-03-19 18:07 | ED.PDOC ---
History of Present Illness - General Chief Complaint: Chest Pain/ID Time Seen by Provider: 03/19/20 18:02 - History of Present Illness Initial Comments: 59-year-old female positive past medical history presents with to ED complaining of 2 to 3 days of progressive dyspnea with associated chest pain. Associated intermittent cough with generalized fatigue. Chest pain is described as a tightness that has progressed to a pressure, substernal and radiates to her back. Denies loss of taste or smell, nasal congestion, abdominal pain, nausea/vomiting/diarrhea, or acute changes in bowels/urination. She denies history of similar symptoms. She denies alleviating/aggravating factors. No other signs, symptoms, complaints at this time. Allergies/Adverse Reactions: Allergies Codeine Allergy (Unknown, Verified 10/17/18 13:15) Home Medications: Ambulatory Orders Levothyroxine Sodium 25 mcg PO DAILY@0700 05/27/14 Meloxicam [Mobic] 15 mg PO DAILY 05/27/14 Multiple Vitamin [Multi Vitamin Daily] 1 tab PO DAILY 05/30/14 Esomeprazole Magnesium [Nexium] 40 mg PO DAILY 10/17/18 Estradiol [Estrace] 1 mg PO DAILY 10/17/18 Paroxetine HCl [Paroxetine HCl ER] 1 tablet PO BID 10/17/18 Vancomycin Per Pharmacy 1 ea IV INFUS BID 10/17/18 Verapamil HCl [Verapamil Hydrochloride] 1 tablet PO BID 10/17/18 Methylprednisolone [Medrol Dose Jarrett] 4 mg PO DAILY 6 Days #21 tab 04/03/19 Review of Systems - Review of Systems Constitutional: Denies: chills, fever EENTM: Denies: nose congestion, throat pain Respiratory: States: cough, short of breath Cardiology: States: chest pain. Denies: palpitations Gastrointestinal/Abdominal: Denies: abdominal pain, diarrhea, nausea, vomiting Genitourinary: Denies: dysuria, frequency Musculoskeletal: States: back pain. Denies: muscle pain, neck pain Skin: Denies: change in color, rash Neurological: States: other - no dizziness. Denies: headache Hematologic/Lymphatic: Denies: easy bruising Past Medical History (General) - Patient Medical History Hx Seizures: No Hx Stroke: No Hx Dementia: No Hx Asthma: No Hx of COPD: No Hx Cardiac Disorders: No Hx Congestive Heart Failure: No Hx Pacemaker: No Hx Hypertension: Yes Hx Thyroid Disease: Yes Hx Diabetes: Yes Hx Gastroesophageal Reflux: Yes Hx Renal Disease: No Hx Cancer: Yes - skin Hx of HIV: No Hx Hepatitis C: No Hx MRSA: No - Vaccination History Hx Tetanus, Diphtheria Vaccination: Yes - 5-10 yrs Hx Influenza Vaccination: No Hx Pneumococcal Vaccination: No - Social History Hx Tobacco Use: No Hx Chewing Tobacco Use: No Hx Alcohol Use: No Hx Substance Use: No Hx Substance Use Treatment: No Hx Depression: No Hx Physical Abuse: No Hx Emotional Abuse: No Hx Suspected Abuse: No - Female History Patient : No Family Medical History - Family History Maternal Family History: Unknown Living Status: Hx Family Asthma: No Hx Family Congestive Heart Failure: No Hx Family Hypertension: Yes Hx Family Stroke: Yes Hx Cardiac Disease: No Hx Family Diabetes: Yes Hx Family Cancer: Yes Physical Exam - Physical Exam General Appearance: Alert, Other - mild discomfort due to dyspnea however not in distress and not ill appearing, nontoxic Eyes, Ears, Nose, Throat Exam: PERRL/EOMI, normal ENT inspection Neck: full range of motion, supple, normal inspection, other - no JVD Respiratory: lungs clear, normal breath sounds, no respiratory distress, no accessory muscle use Cardiovascular/Chest: regular rate, rhythm, no edema, no JVD, no murmur Gastrointestinal/Abdominal: normal bowel sounds, non tender, soft Extremity: non-tender, normal inspection, no pedal edema Neurologic: alert, normal mood/affect, oriented x 3 Skin Exam: normal color, warm/dry, other - no rash, no ecchymosis Progress - Progress Progress: Rehan Cornejo DO Emergency Medicine Physician [id number] Appropriate PPE of surgical mask, gown, gloves, and eye protection (if encounter >5 minutes) utilized with every patient encounter; in accordance with hospital policy. Presents for ACS vs PE vs less likely COVID19. HEART score 4 if troponins result negative. I will perform imaging, provide appropriate pharmacotherapy, and continue to monitor/reassess. Dispo will depend on imaging results and overall course in ED. Recheck patient with at bedside. No acute distress, vital signs stable. I have discussed radiology results, lab results, my clinical impression, and diagnosis. Discussed risk/benefits/alternatives of admission versus discharge home with PCP follow-up and outpatient management. Patient agrees with inpatient admission. Patient voices understanding, agrees with plan, questions answered. 21:[address] Neumann he discussed patient's case in ED along with current findings. He agrees that is likely best to go ahead and admit patient for observation. 21:42 Consulted with hospitalist Isaac Blood discussed patient's case in ED along with current findings and discussion with PCP. He agrees with admission. Multiple rechecks the patient in ED. No acute distress, vital signs stable, and with clinical improvement observed throughout ED course and no acute decompensations. - Results/Orders Results/Orders: EKG @1758: read @1802. Sinus bradycardia @49, nl axis, intervals wnl, no ST elevations/depressions, nonspecific ST/T-wave changes. No STEMI. 03/19/20 18:03 IV Care:Saline Lock per Protoc QSHIFT IV:Start .ONCE 03/19/20 18:15 EKG STAT 03/19/20 21:42 ED Intent to Admit Routine Laboratory Results - last 24 hr 03/19/20 03/19/20 03/19/20 18:23 18:23 18:23 WBC 4.6 L RBC 4.41 Hgb 13.6 Hct 40.9 MCV 92.7 MCH 30.9 MCHC 33.3 RDW 12.7 Plt Count 184 MPV 9.4 Absolute Neuts (auto) 2.00 Absolute Lymphs (auto) 1.70 Absolute Monos (auto) 0.60 Absolute Eos (auto) 0.20 Absolute Basos (auto) 0.00 Neutrophils % 44.7 Lymphocytes % 37.4 Monocytes % 12.3 H Eosinophils % 5.1 H Basophils % 0.5 D-Dimer, Quantitative 758.0 H* Sodium 138 Potassium 3.7 Chloride 103 Carbon Dioxide 28 Anion Gap 10.7 L BUN 17 Creatinine 0.78 BUN/Creatinine Ratio 21.8 H Random Glucose 111 H Serum Osmolality 277.9 Calcium 8.9 Total Bilirubin 0.6 AST 20 ALT 15 Alkaline Phosphatase 53 Troponin I B-Natriuretic Peptide 52.8 Serum Total Protein 7.0 Albumin 3.8 Globulin 3.2 Albumin/Globulin Ratio 1.2 Lipase 37 Urine Color Urine Appearance Urine pH Ur Specific Dillard Urine Protein Urine Glucose (UA) Urine Ketones Urine Blood Urine Nitrite Urine Bilirubin Urine Urobilinogen Ur Leukocyte Esterase Urine RBC Urine WBC Ur Epithelial Cells Amorphous Sediment Urine Bacteria 03/19/20 03/19/2003/19/21 18:23 19:29 20:54 WBC RBC Hgb Hct MCV MCH MCHC RDW Plt Count MPV Absolute Neuts (auto) Absolute Lymphs (auto) Absolute Monos (auto) Absolute Eos (auto) Absolute Basos (auto) Neutrophils % Lymphocytes % Monocytes % Eosinophils % Basophils % D-Dimer, Quantitative Sodium Potassium Chloride Carbon Dioxide Anion Gap BUN Creatinine BUN/Creatinine Ratio Random Glucose Serum Osmolality Calcium Total Bilirubin AST ALT Alkaline Phosphatase Troponin I < 0.02 < 0.02 B-Natriuretic Peptide Serum Total Protein Albumin Globulin Albumin/Globulin Ratio Lipase Urine Color Yellow Urine Appearance Clear Urine pH 5.5 Ur Specific Dillard 1.025 Urine Protein Negative Urine Glucose (UA) Negative Urine Ketones Negative Urine Blood Negative Urine Nitrite Negative Urine Bilirubin Negative Urine Urobilinogen 0.2 Ur Leukocyte Esterase Negative Urine RBC 0 Urine WBC 0 Ur Epithelial Cells 5-10 Amorphous Sediment Trace Urine Bacteria 0 EXAM DESCRIPTION: Chest,1 View CLINICAL HISTORY:59 years Female, CP, SOB Comparison: September 22, 2018 FINDINGS: No focal lung consolidation. No pleural e ffusion. No pneumothorax. Cardiac and mediastinal silhouette is unremarkable. No acute osseous abnormality. Soft tissues are unremarkable. IMPRESSION: No acute findings. No focal lung consolidation. Electronically signed by: Bairon Quezada MD 03/19/2020 7:39 PM GUEST SPECIALIST PROCEDURE: CTA Chest CLINICAL HISTORY: 59 years Female SOB, elevated d-dimer, CP TECHNIQUE: Contiguous axial images obtained through the chest were obtained from the thoracic inlet to the level of the upper abdomen during the pulmonary arterial phase of intravenous contrast administration. Coronal and sagittal reformatted and multiplanar MIP images provided. This CT exam was performed according to our departmental dose-optimization program, which includes one or more of the following dose reduction techniques: automated exposure control, adjustment of the mA and/or kV according to patient size, and/or use of iterative reconstruction technique. COMPARISON: Radiograph obtained earlier the same day. FINDINGS: Although no large central pulmonary embolus is identified, subsegmental pulmonary emboli are not excluded on this examination, which is limited by patient motion. The thoracic aorta is normal without aneurysm or dissection. Borderline cardiac size without pericardial effusion. The lungs are clear without consolidation, effusion, or pneumothorax. No lymphadenopathy in the chest. Prior gastric sleeve surgery. Prior cholecystectomy. No acute osseous lesion. IMPRESSION: No large central pulmonary mass. Subsegmental pulmonary emboli not excluded due to patient motion. No acute cardiopulmonary findings. Electronically signed by: Wanda Powers MD 03/19/2020 8:52 PM [facility] Vital Signs - 24 hr 03/19/20 03/19/20 17:55 18:52 Temperature 98.4 F 98.4 F Pulse Rate [ 49 L 49 L monitor] Respiratory 20 20 Rate Blood Pressure 176/85 176/85 [Left Arm] O2 Sat by Pulse 100 100 Oximetry Departure - Departure Clinical Impression: ACS (acute coronary syndrome), Chronic sinus bradycardia Pulmonary embolism Qualifiers: Pulmonary embolism type: single subsegmental (without acute cor pulmonale) Qualified Code(s): I26.93 - Single subsegmental pulmonary embolism without acute cor pulmonale Time of Disposition: 21:31 Disposition: Admit Patient Condition: Fair Departure Forms: ED Discharge - Pt. Copy, Patient Portal Self Enrollment Instructions: DI for Chest Pain Diet: low salt diet Referrals: FORD NEUMANN [Primary Care Provider] - 1-5 Days Home Medications: Ambulatory Orders Levothyroxine Sodium 25 mcg PO DAILY@0700 05/27/14 Meloxicam [Mobic] 15 mg PO DAILY 05/27/14 Multiple Vitamin [Multi Vitamin Daily] 1 tab PO DAILY 05/30/14 Esomeprazole Magnesium [Nexium] 40 mg PO DAILY 10/17/18 Estradiol [Estrace] 1 mg PO DAILY 10/17/18 Paroxetine HCl [Paroxetine HCl ER] 1 tablet PO BID 10/17/18 Vancomycin Per Pharmacy 1 ea IV INFUS BID 10/17/18 Verapamil HCl [Verapamil Hydrochloride] 1 tablet PO BID 10/17/18 Methylprednisolone [Medrol Dose Jarrett] 4 mg PO DAILY 6 Days #21 tab 04/03/19 Critical Care Note - Critical Care Note Total Time (mins): 37 Decision To Admit - Decistion To Admit Decision to Admit Reason: Admit from ER Decision to Admit Date: 03/19/20 Decision to Admit Time: 21:31
[2020-03-19] MEDS ORDERED: ALUM & MAG HYDROX-SIMETHICONE 30 ML, LIDOCAINE VISCOUS 2% 15 ML PO ONE ×2 (18:23)
--- NOTE | 2020-03-19 19:40 | RAD ---
EXAM DESCRIPTION: Chest,1 View CLINICAL HISTORY:59 years Female, CP, SOB Comparison: September 22, 2018 FINDINGS: No focal lung consolidation. No pleural effusion. No pneumothorax. Cardiac and mediastinal silhouette is unremarkable. No acute osseous abnormality. Soft tissues are unremarkable. IMPRESSION: No acute findings. No focal lung consolidation. Electronically signed by: Bairon Quezada MD 03/19/2020 7:39 PM WINDING MACHINE OPERATOR
--- NOTE | 2020-03-19 20:53 | CT ---
PROCEDURE: CTA Chest CLINICAL HISTORY: 59 years Female SOB, elevated d-dimer, CP TECHNIQUE: Contiguous axial images obtained through the chest were obtained from the thoracic inlet to the level of the upper abdomen during the pulmonary arterial phase of intravenous contrast administration. Coronal and sagittal reformatted and multiplanar MIP images provided. This CT exam was performed according to our departmental dose-optimization program, which includes one or more of the following dose reduction techniques: automated exposure control, adjustment of the mA and/or kV according to patient size, and/or use of iterative reconstruction technique. COMPARISON: Radiograph obtained earlier the same day. FINDINGS: Although no large central pulmonary embolus is identified, subsegmental pulmonary emboli are not excluded on this examination, which is limited by patient motion. The thoracic aorta is normal without aneurysm or dissection. Borderline cardiac size without pericardial effusion. The lungs are clear without consolidation, effusion, or pneumothorax. No lymphadenopathy in the chest. Prior gastric sleeve surgery. Prior cholecystectomy. No acute osseous lesion. IMPRESSION: No large central pulmonary mass. Subsegmental pulmonary emboli not excluded due to patient motion. No acute cardiopulmonary findings. Electronically signed by: Wanda Powers MD 03/19/2020 8:52 PM [employer]
[2020-03-19] MEDS ORDERED: ENOXAPARIN SODIUM 100 MG/ML SYG SUBCU ONE (21:30)
[2020-03-19] MEDS ORDERED: ENOXAPARIN SODIUM 30 MG/0.3 ML SYG SUBCU ONE ×2 (21:30→21:42)
[2020-03-20] MEDS ORDERED: SUCRALFATE 1 GM/10 ML 1 GM UD ONE (00:41)
[2020-03-20] MEDS ORDERED: SUCRALFATE 1 GM/10 ML 1 GM UD PO ONE (00:46)
[2020-03-20] MEDS ORDERED: PANTOPRAZOLE SODIUM IV 40 MG VIAL IV ONE (00:47)
[2020-03-20] MEDS ORDERED: ACETAMINOPHEN 325 MG TAB PO PRN (00:48)
[2020-03-20] MEDS ORDERED: SODIUM CHLORIDE 0.9% (FLUSH) 10 ML SYG IV PRN (00:48)
[2020-03-20] MEDS ORDERED: NITROGLYCERIN 0.4 MG 25 EA TAB SL PRN (00:48)
[2020-03-20] MEDS ORDERED: IV SET AND CAP CHANGE INJ INJ SCH (01:00)
[2020-03-20] MEDS: SUCRALFATE 1 GM/10 ML 1 GM UD PO SCH ×3 (07:04→16:28)
[2020-03-20] MEDS ORDERED: SODIUM CHLORIDE 0.9% (FLUSH) 10 ML SYG IV SCH (09:00)
[2020-03-20 14:29] VITALS: BP 146/66; TEMP 97.8; O2SAT 99
--- NOTE | 2020-03-26 08:46 | SSS ---
SUPERVISING PHYSICIAN: Ramiro Hou MD DATE OF ADMISSION: 03/19/20 DATE OF DISCHARGE: 03/20/20 DISCHARGE DIAGNOSIS: 1. Chest pain, rule out acute coronary syndrome. Her workup was negative. 2. History of esophageal spasm. 3. Gastroesophageal reflux disease. 4. Hypothyroidism. 5. History of depression. HISTORY OF PRESENT ILLNESS: This is a 59-year-old female patient who has a significant history of esophageal spasms and gastroesophageal reflux disease. She presented to the Emergency Room with about 3 days of complaints of shortness of breath and chest pain. She said the pain was very tight and has progressed to a pressure that was substernal and radiated straight through to the back. She denied any loss of taste or smell. There were no upper respiratory symptoms other than the shortness of breath. She has has had similar symptoms in the past and had been scheduled to see a GI doctor, but due to the COVID issues, that had been delayed. Her initial vital signs were temperature 98.4, heart rate 49, blood pressure 176/85, respiratory rate 20, O2 saturation 100% on room air. Labs showed CBC that was unremarkable. D-dimer was 758. Electrolytes were basically within normal limits. Her initial troponin was negative and approximately 3 hours after that, her second troponin was negative. Urinalysis was unremarkable. Chest x-ray showed 1) No acute findings, no focal lung consolidation. Her CTA of the chest showed no large central pulmonary mass, subsegmental pulmonary emboli not excluded due to patient motion. 2) No acute cardiopulmonary findings. She was placed in observation in the hospital for chest pain, rule out acute coronary syndrome. HOSPITAL COURSE: The patient was placed on the chest pain guidelines. She had one other complaint of chest pain approximately 2 o'clock in the afternoon. Troponin was negative. EKG showed no changes. She does have a significant history of gastroesophageal reflux disease and esophageal spasm. She was strongly encouraged to see her primary care physician at discharge for further GI workup. PAST MEDICAL HISTORY: 1. Esophageal spasms. 2. Gastroesophageal reflux disease. 3. Depression. 4. Hypothyroidism. 5. Diabetes mellitus, diet controlled. PAST SURGICAL HISTORY: 1. Gastric sleeve. 2. Right hip replacement. 3. Partial colectomy due to complications from diverticulitis. 4. Bilateral lumpectomy. 5. Carpal tunnel release bilaterally. 6. Hernia repair. HOME MEDICATIONS: 1. Synthroid. 2. Nexium. 3. Estradiol. 4. Mobic. 5. Multivitamin. 6. Paroxetine. ALLERGIES: CODEINE. SOCIAL HISTORY: She is . She has four kids. She lives in [place]. There is no history of tobacco, ETOH or illicit drug use. REVIEW OF SYSTEMS: Negative except as per history of present illness. PHYSICAL EXAMINATION: VITAL SIGNS: Temperature 97.8, heart rate 54, blood pressure 146/66, respiratory rate 16, O2 saturation 99% on room air. GENERAL: This is a 59-year-old female patient lying in her hospital bed. She is in no acute distress. HEENT: Normocephalic, atraumatic. Pupils are equal and reactive. Oropharynx is clear. NECK: Supple without mass. RESPIRATORY: Essentially clear to auscultation bilaterally. CARDIOVASCULAR: Regular rate and rhythm. GASTROINTESTINAL: Abdomen is soft, nondistended, nontender. Bowel sounds are positive. EXTREMITIES: No cyanosis, clubbing or edema. NEUROLOGIC: Awake, alert and oriented times three. Cranial nerves II-XII are grossly intact as tested. SKIN: [place], warm and dry. LABORATORY: Labs are as per history of present illness. RADIOLOGY: Her echocardiogram report is not available for dictation, but it has been done. DISCHARGE PLAN: The patient will be discharged home in stable condition. She is to resume her previous diet and increase her activity as tolerated. She has a followup appointment with Dr. Box on 03/24/20. In addition to her routine medications, I have added sucralfate to her medications. She is to return to the hospital or followup with Dr. Box for any problems or complications. DISCHARGE MEDICATIONS: 1. Mobic. 2. Levothyroxine. 3. Multivitamins. 4. Paroxetine. 5. Nexium. 6. Estradiol. 7. Sucralfate. #[id number] [facility]
== END 2020-03-20 18:08 | disposition home or self-care (01) ==
LOC: ER 17:55 → MS 23:18
PROVIDERS: ADMIT Nurse Practitioner Family; ATTEND Nurse Practitioner Acute Care
DX: R07.89 Other chest pain (principal); K22.4 Dyskinesia of esophagus; K21.9 Gastro-esophageal reflux disease without esophagitis; E03.9 Hypothyroidism, unspecified; F32.9 Major depressive disorder, single episode, unspecified; R00.1 Bradycardia, unspecified; R06.02 Shortness of breath; E11.9 Type 2 diabetes mellitus without complications; I10 Essential (primary) hypertension; Z20.822 Contact with and (suspected) exposure to COVID-19; Z79.1 Long term (current) use of non-steroidal anti-inflammatories (NSAID); Z79.890 Hormone replacement therapy; Z79.899 Other long term (current) drug therapy; Z88.6 Allergy status to analgesic agent; Z96.641 Presence of right artificial hip joint; Z98.84 Bariatric surgery status; Z85.828 Personal history of other malignant neoplasm of skin; Z82.49 Family history of ischemic heart disease and other diseases of the circulatory system; Z82.3 Family history of stroke; Z83.3 Family history of diabetes mellitus; Z80.9 Family history of malignant neoplasm, unspecified
CPT/HCPCS: 96374; 96372; J1650 ×2; 85379; 80053; 80061; 36415 ×3; 81001; 85025; 83690; 84484 ×4; 83880; 71045; 71275; 94760 ×2; 99285; 93306; 93005; G0378; 87635